=== PATIENT | female | born 2005 | race Caucasian/White ===

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

== ENCOUNTER 2025-01-08 05:02 | Inpatient (IN) | payer OTHER, MEDICAID, SELFPAY ==
--- OUTSIDE RECORDS SUMMARY | 2024-12-26 10:50 | XMS_ITS | Encounter Summary ---
Author Organization [facility] Address [address] [place] [address] Care Team Providers Care Secondary English Teacher Name Role Phone Unavailable Primary Care Provider Unavailabl e Reason for Visit * Reason Comments Routine Visit Encounter Details Date Type Department Care Team ([facility] st Contact Info) Description 12/26/2024 10:50 AM EDT Routine [facility] [address] [place] [id number] Davis Parks, DO [address] [facility] [address] Selina Mccarty, [facility]11 Third trimester ([facility]); 38 weeks gestation of ([facility]) Social History Tobacco Use Types Packs/Day Years [...] Sign Reading Time Taken Comments Blood Pressure 128/78 12/26/2024 10:46 AM EDT Pulse - - Temperature - - Respiratory Rate - - Oxygen Saturation - - Inhaled Oxygen Concentration - - Weight 76.7 kg (169 lb) 12/26/2024 10:46 AM EDT Height - - Body Mass Index - - documented in this encounter Progress Notes * Ani Deleon, HELPER MARBLE FINISHER - 12/26/2024 10:50 AM EDT Reason for Appointment: Patient ID: Holly [...] Constitutional: Appearance: Normal appearance. She is well-developed. Genitourinary: Vulva normal. Cardiovascular: Rate and Rhythm: Normal rate and [...] nursing note reviewed. Exam conducted with a body shop supervisor present. Vitals: Estimated body mass index is 21.16 kg/m?? as calculated from the following: Height as of 08/24/22: 5' 6 . Weight as of 08/24/22: 131 lb 1.9 oz. BP: 128/78 Patient's last menstrual period was 03/31/2024. ASSESSMENT & PLAN ICD-10-CM 1. Third trimester ([facility]) Z34.93 POCT urinalysis dipstick manually resulted 2. 38 weeks gestation of ([facility]) Z3A.38 Return OB: Patient presents today for a routine obstetrics appointment. Patient is currently 38w4d . Patient states she is doing well but has complaints of being tired due to current . Patient has verbalizes frequent movement. labor precautions was discussed/given and patient was instructed to perform kick counts three times a day. Pt to be induced on 01/03/25 with pitocin. Induction consents signed. Pt to report to [facility] at 0500 on 01/03/25. Orders Placed This Encounter Procedures POCT urinalysis dipstick manually resulted Follow Up: Patient is to return to office in 1 week for routine OB appointment. Documented by Ani Deleon LPN on behalf of: Davis Parks DO documented in this encounter Plan of Treatment Not on file documented as of this encounter Procedures Procedure Name Priority Date/Time Associated Diagnosis Comments POCT URINALYSIS DIPSTICK Routine 12/26/2024 10:53 AM EDT Third trimester ([facility]) documented in this encounter Results * (ABNORMAL) POCT urinalysis dipstick manually resulted (12/26/2024 10:53 AM EDT) Color, UA Yellow Clarity, UA Clear Glucose, UA Negative Negative - 2000(110) ++++ mg/dL Bilirubin, UA Negative Negative - 4(70) +++ mg/dL Ketones, UA Negative Negative - 160(16) ++++ mg/dL Spec Grav, UA 1.015 1 - 1.03 Blood, UA Negative Negative - 50 Brandt/mcL pH, UA 6.5 5 - 9 Protein, UA Negative Negative - 2000(20) ++++ mg/dL Urobilinogen, UA 0.2 0.2 - 12 mg/dL Leukocytes, UA Moderate Negative - 500+++ Scott/mcL Nitrite, UA Negative Negative - Positive Urine 12/26/2024 10:5 3 AM EDT Davis Parks DO POINT OF CARE TEST ENTER/EDIT OR DERABLES Final Result documented in this encounter Visit Diagnoses Diagnosis Third trimester ([facility]) state, incidental 38 weeks gestation of ([facility]) documented in this encounter
--- OUTSIDE RECORDS SUMMARY | 2025-01-03 08:50 | XMS_ITS | Encounter Summary ---
Author Organization [facility] Healthcare Address [address] [place] [address] Care Team Providers Care Logistics Solution Manager Name Role Phone Unavailable Primary Care Provider Unavailabl e Reason for Visit * Reason Comments Routine Visit Encounter Details Date Type Department Care Team ([facility] st Contact Info) Description 01/03/2025 8:50 AM EDT Routine [facility] [address] [place] [id number] Emily Carrera PA [address] [place] [address] 39 weeks gestation of ([facility]); Third trimester ([facility]); Low serum iron Social History Tobacco Use Types Packs/Day Years [...] Sign Reading Time Taken Comments Blood Pressure 130/70 01/03/2025 8:56 AM EDT Pulse - - Temperature - - Respiratory Rate - - Oxygen Saturation - - Inhaled Oxygen Concentration - - Weight 78.5 kg (173 lb 1.9 oz) 01/03/2025 8:56 A M EDT Height - - Body Mass Index - - documented in this encounter Progress Notes * PRERNA Glass - 01/03/2025 8:50 AM EDT Reason for Appointment: Patient ID: Holly Vance is a 19 y.o. female who presents for Routine Visit Patient presents today for Return OB appointment. MEDICATIONS Current Outpatient Medications Medication Instructions ondansetron ODT (ZOFRAN-ODT) 4 mg ALLERGIES Allergies [...] Exam Constitutional: Appearance: Normal appearance. She is well-developed and normal weight. HENT: Head: Normocephalic. Cardiovascular: Rate and Rhythm: Normal rate and regular rhythm. Pulses: Normal pulses. Pulmonary: Effort: Pulmonary effort is normal. Breath sounds: Normal breath sounds. Abdominal: General: Bowel sounds are normal. There is no distension. Palpations: Abdomen is soft. Tenderness: There is no abdominal tenderness. There is no guarding or rebound. Musculoskeletal: General: No swelling. Normal range of motion. Right lower leg: No edema. Left lower leg: No edema. Neurological: General: No focal deficit present. Mental Status: She is alert and oriented to person, place, and time. Skin: General: Skin is warm and dry. Psychiatric: Mood and Affect: Mood normal. Behavior: Behavior normal. Thought Content: Thought content normal. Judgment: Judgment normal. Vitals and nursing note reviewed. Exam conducted with a portfolio mgr present. Vitals: Estimated body mass index is 21.16 kg/m?? as calculated from the following: Height as of 08/24/22: 5' 6 . Weight as of 08/24/22: 131 lb 1.9 oz. BP: 130/70 Patient's last menstrual period was 03/31/2024. ASSESSMENT & PLAN ICD-10-CM 1. 39 weeks gestation of ([facility]) Z3A.39 POCT urinalysis dipstick manually resulted 2. Third trimester ([facility]) Z34.93 POCT urinalysis dipstick manually resulted 3. Low serum iron E61.1 POCT urinalysis dipstick manually resulted Return OB: Patient presents today for a routine obstetrics appointment. Patient is currently 39w5d . Patient states she is doing well [...] week for routine OB appointment. Documented by Faustina Colón LPN on behalf of: PRERNA Glass documented in this encounter Plan of Treatment Not on file documented as of this encounter Procedures Procedure Name Priority Date/Time Associated Diagnosis Comments POCT URINALYSIS DIPSTICK Routine 01/03/2025 9:03 AM EDT 39 weeks gestation of ([facility]) Third trimester ([facility]) Low serum iron documented in this encounter Results * (ABNORMAL) POCT urinalysis dipstick manually resulted (01/03/2025 9:03 AM EDT) Color, UA Yellow Clarity, UA Clear Glucose, UA Negative Negative - 1999(110) ++++ mg/dL Bilirubin, UA Negative Negative - 4(70) +++ mg/dL Ketones, UA Negative Negative - 160(16) ++++ mg/dL Spec Grav, UA 1.020 1 - 1.03 Blood, UA Negative Negative - 50 Brandt/mcL pH, UA 6.0 5 - 9 Protein, UA Positive Negative - 2000(20) ++++ mg/dL Comment:30 Urobilinogen, UA 1.0 0.2 - 12 mg/dL Leukocytes, UA Negative Negative - 500+++ Scott/mcL Nitrite, UA Negative Negative - Positive Urine 01/03/2025 9:03 AM EDT Emily GRAFF POINT OF CARE TEST ENTER/EDIT OR DERABLES Final Result documented in this encounter Visit Diagnoses Diagnosis 39 weeks gestation of ([facility]) Third trimester ([facility]) state, incidental Low serum iron documented in this encounter
[2025-01-08] VITALS (39 sets, daily range): BP systolic 99–191; BP diastolic 50–151; PULSE 67–146; TEMP 36.3–37.1
--- OUTSIDE RECORDS SUMMARY | 2025-01-08 05:09 | XMS_ITS | Encounter Summary ---
Author Organization [facility] Address [address] [place] [address] Care Team Providers Care Fuel Storage Technician Name Role Phone Unavailable Primary Care Provider Unavailabl e Encounter Details Date Type Department Care Team (Late st Contact Info) Description 07/19/2024 Abstract [facility] [address] [facility] [place] [address] Davis Parks, DO [address] [place] [address] Social History Tobacco Use Types Packs/Day Years [...]
--- OUTSIDE RECORDS SUMMARY | 2025-01-08 05:09 | XMS_ITS | Encounter Summary ---
Author Organization [facility] Address [address] [place] [address] Care Team Providers Care Sod Farmer Name Role Phone Unavailable Primary Care Provider Unavailabl e Encounter Details Date Type Department Care Team (Late st Contact Info) Description 09/05/2024 External Result Encounter [facility] OB [address] [facility] [place] [address] Davis Parks, DO [address] [place], [facility] Social History Tobacco Use Types Packs/Day [...] PM EDT THIS EXAM WAS PERFORMED AT [facility] NAME: ETELVINA BETHEA : 2005 SEX: F Accession Number: [id number] ORDERING PHYSICIAN: DAVIS PARKS REFERRING PHYSICIAN: DAVIS PARKS Coding ----- --------- Procedures [id number]: Ultrasound, uterus, real time with image documentation, and maternal evaluation plus detailed anatomic examination, transabdominal approach;single or first gestation [id number]: Echocardiography, , cardiovascular system, real time with [...] 1 lb 1 oz EFW by Hadlock ([id number]) Head / Face / Neck Biometry: Cephalic index 0.73 5% Nicolaides Chief Transfer And Pumphouse Operator 5.4 mm CM 3.6 mm 4% Nicolaides [...] Heart / Thorax RVOT view. 3-vessel view. 3-xhbnbo-xklrtpa view. Echocardiogram ----- --------- Situs situs solitus (normal) Cardiac position suboptimal Cardiac axis normal Cardiac size normal (approx. 1/3 of thoracic area) Cardiac rhythm regular (normal) 4-chamber view suboptimal LVOT view normal RVOT view not examined 3-vessel view not examined 8-jkrjga-omrowhg view not examined Aortic arch view normal [...] of 01/05/2025. Recommendations ----- --------- Please see [facility] documentation from today. The patient is scheduled in four to six week(s) to complete anatomic survey and echocardiogram. Subsequent follow up or other follow up as clinically determined by primary OB provider unless otherwise specified by M. Results forwarded to ordering provider so they can follow up with the patient as necessary. Procedure Note Radiology, Kevin, - 09/05/2024 THIS EXAM WAS PERFORMED AT [facility] NAME: ETELVINA BETHEA : 2005 SEX: F Accession Number: [id number] ORDERING PHYSICIAN: DAVIS PARKS REFERRING PHYSICIAN: DAVIS PARKS Coding ----- --------- Procedures [id number]: Ultrasound, uterus, real time with imagedocumentation, and maternal evaluation plus detailed anatomic examination, transabdominalapproach;single or first gestation [id number]: Echocardiography, , cardiovascular system, real timewith image [...] 1 lb 1 oz EFW by Hadlock ([id number]) Head / Face / Neck Biometry: Cephalic index 0.73 5% Nicolaides Chief Transfer And Pumphouse Operator 5.4 mm CM 3.6 mm 4% Nicolaides [...] Heart / Thorax RVOT view. 3-vessel view. 2-bctjle-kzjuikn view. Echocardiogram ----- --------- Situs situs solitus (normal) Cardiac position suboptimal Cardiac axis normal Cardiac size normal (approx. 1/3 of thoracic area) Cardiac rhythm regular (normal) 4-chamber view suboptimal LVOT view normal RVOT view not examined 3-vessel view not examined 0-kictjj-lsgstcj view not examined Aortic arch view normal [...] NIESHA of01/05/2025. Recommendations ----- --------- Please see M documentation from today. The patient is scheduled in four to six week(s) to complete anatomicsurvey and echocardiogram. Subsequent follow up or other follow up as clinically determined byprimary OB provider unless otherwise specified by M. Results forwarded to ordering provider so they can follow up with thepatient as necessary. us Davis Parks DO IMG OB US PROCEDURES Final Resul t documented in this encounter Visit Diagnoses Not on filedocumented in this encounter
--- OUTSIDE RECORDS SUMMARY | 2025-01-08 05:09 | XMS_ITS | Encounter Summary ---
Author Organization [facility] tem Address [id number] [address] [place] [address] Care Team Providers Care Property Officer Name Role Phone Rudolph Ortiz MD Primary Care Provider [phone] Encounter Details Date Type Department Care Team (Late st Contact Info) Description 08/21/2024 Abstract Maternal- Medicine at [facility] [address] [place] [phone] Seth Horton MD [address] [facility] [address] [place] [address] Social History Tobacco Use Types Packs/Day Years [...] on filedocumented in this encounter Care Teams Property Officer Relationship Specialty Start Date End Date Rudolph Ortiz MD [address] [place] [id number] PCP - General 12/06/12 documented as of this encounter
--- OUTSIDE RECORDS SUMMARY | 2025-01-08 05:09 | XMS_ITS | Encounter Summary ---
Author Organization [facility] Address [address] [place] [address] Care Team Providers Care Mobile Mechanic Name Role Phone Unavailable Primary Care Provider Unavailabl e Encounter Details Date Type Department Care Team (Late st Contact Info) Description 08/27/2024 Abstract [facility] OB [address] [facility] [place] [address] Davis Parks, DO [address] [facility] [place] [address] Social History Tobacco Use Types Packs/Day Years [...]
--- OUTSIDE RECORDS SUMMARY | 2025-01-08 05:09 | XMS_ITS | Encounter Summary ---
Author Organization [facility] tem Address [id number] [address] [place] [address] Care Team Providers Care Farm Service Adviser Name Role Phone Rudolph Ortiz MD Primary Care Provider [phone] Encounter Details Date Type Department Care Team (Late st Contact Info) Description 08/21/2024 Orders Only Maternal- Medicine at [facility] [address] [place] [phone] Ref Prov, [place] [address] Social History Tobacco Use Types Packs/Day Years [...] ORDERABLES Almaz l Result Performing Organization Address City/[facility]/ZIP Co de Phone Number MANUALLY TRANSCRIBED RESULTS * Unlisted Genetic Test (06/17/2024 4:12 PM EST) us Not In System Ref Prov LAB BLOOD ORDERABLES Almaz l Result Performing Organization Address City/[facility] Co de Phone Number MANUALLY TRANSCRIBED RESULTS documented in this encounter Visit Diagnoses Not on filedocumented in this encounter Care Teams Farm Service Adviser Relationship Specialty Start Date End Date Rudolph Ortiz MD [address] [place], [place] [id number] PCP - General 12/06/12 documented as of this encounter
--- OUTSIDE RECORDS SUMMARY | 2025-01-08 05:09 | XMS_ITS | Encounter Summary ---
Author Organization [facility] Address [address] [place] [address] Care Team Providers Care Assembler Lay Ups Name Role Phone Unavailable Primary Care Provider Unavailabl e Encounter Details Date Type Department Care Team (Late st Contact Info) Description 09/07/2024 Abstract [facility] OB [address] [facility] [place] [address] Davis Parks, DO [address] [place] [address] Social History Tobacco Use Types Packs/Day Years [...]
--- OUTSIDE RECORDS SUMMARY | 2025-01-08 05:10 | XMS_ITS | Encounter Summary ---
Author Organization [facility] Address [address] [place] [address] Care Team Providers Care Lens Grinder And Polisher Name Role Phone Unavailable Primary Care Provider Unavailabl e Encounter Details Date Type Department Care Team (Late st Contact Info) Description 06/13/2024 Abstract [facility] OB [address] [facility] [place] [address] Davis Parks, DO [address] [facility] [address] [place] [address] Social History Tobacco Use Types Packs/Day Years [...]
--- OUTSIDE RECORDS SUMMARY | 2025-01-08 05:10 | XMS_ITS | CCD ---
Author Organization [facility] Care Team Providers Care Nutrition Teacher Name Role Phone Mary Queen DO Primary Care Provider [phone] ANETA SANDERSON Admitting Unavailable NADDAF, ANETA A Attending Unavailable MARY QUEEN Primary Care Unavailable OZZY, MARY Primary Care Unavailable CLIFF ORTIZ Referring Unavailable OZZY, MARY Primary Care Unavailable NADDAF, ANETA A Referring Unavailable KASEY ., DR FLORES Admitting Unavailable KASEY ., DR FLORES Attending Unavailable MISC, DR SINGH Primary Care Unavailable KASEY ., DR FLORES Consulting Unavailable [employer] Consulting Unavailable Unavailable Primary Care Provider Unavailmarlon Ortiz MD, Rudolph Bran Primary Care Provider KASEY, DAVIS R Referring Unavailable TANIYA, CAODAISM A Primary Care Unavailable KAVEH, HARMAN Attending Unavailable KASEY, DAVIS R Referring Unavailable TANIYA, CAODAISM A Primary Care Unavailable KASEY, DAVIS R Referring Unavailable TANIYA, CAODAISM A Primary Care Unavailable DEBI, EMILY Attending Unavailable KASEY, DAVIS Attending Unavailable DEBI, EMILY Attending Unavailable KAVEH, HARMAN Referring Unavailable KASEY, DAVIS Attending Unavailable DEBI, EMILY Attending Unavailable KASEY, DAVIS Attending Unavailable DEBI, EMILY Referring Unavailable DEBI, EMILY Attending Unavailable KASEY, DAVIS Attending Unavailable DEBI, EMILY Attending Unavailable KASEY, DAVIS Attending Unavailable DEBI, EMILY Attending Unavailable KASEY, DAVIS Attending Unavailable Allergies Allergy Classification Reported Allergen(s) Allergy Type Date of Onset Reaction(s) Facility (20 sources) Amoxicillin Drug Allergy 1 Other (See Comments) [employer] (6 sources) Contrast media; Translations: [RED DYE] Propensity to adverse reactions to drug 3 [employer] Work Phone: (20 sources) Milk-Related Compounds Propensity to adverse reactions to drug 3 Other (See Comments) [facility] (1 source) Amoxicillin Drug Allergy [facility] (20 sources) House dust mite Allergy to substance 4 [facility] (20 sources) Red Dye #40 (Allura Red) Propensity to adverse reactions 3 [facility] (4 sources) Milk; Translations: [MILK CONTAINING PRODUCTS (DAIRY)] Propensity to adverse reactions to drug 5 [facility] (20 sources) Penicillins; Translations: [PENICILLINS] Propensity to adverse reactions to drug 5 GI Disturbance [facility] (4 sources) House Dust Mite; Translations: [HOUSE DUST MITE] Propensity to adverse reactions to drug 5 [facility] (20 sources) Pollen Allergy to substance 5 [facility] (20 sources) Other Propensity to adverse reactions 5 [facility] (20 sources) Red Dye #17 (New Red) Propensity to adverse reactions 5 [facility] Medications Current Medications Medication Drug Class(es) [...] sources) Dopamine-2 Receptor Antagonist Start: 06-29-2024 End: 01-03-2025 metoclopramide (Reglan) 10 MG tablet Indications: Nausea Take 1 tablet (10 mg) by mouth in the morning and 1 tablet (10 mg) at noon and 1 tablet (10 mg) in the evening. Take before meals. Take 1 tablet by mouth 30 minutes prior to meals 3 times daily as needed for nausea.. 90 tablet 2 06/29/2024 01/03/2025 Discontinued 2 ml midazolam 1 mg/ml injection (1 [...] cycle; Translations: [Missed period] Onset: 09-10-2022 Chronic Nutritional deficiencies (2 sources) Serum iron low; Translations: [Iron deficiency] 01-03-2025 Episodic Other complications of (1 source) Vomiting of [...] [36 weeks gestation of ] 12-13-2024 Episodic Residual codes; unclassified (2 sources) Gestation period, 38 weeks; Translations: [38 weeks gestation of ] 12-26-2024 Episodic Residual codes; unclassified (2 sources) Gestation period, 39 weeks; Translations: [39 weeks gestation of ] 01-03-2025 Episodic Unclassified (1 source) FOB Cardiac Defect Onset: 09-05-2024 Past or Other Problems Problem Classification Problem Date Documented Da te Episodic/Chronic Conditions associated with dizziness or vertigo (2 sources) Benign paroxysmal positional vertigo; Translations: [Benign paroxysmal vertigo, unspecified ear] Onset: 11-12-2016 11-12-2016 Episodic Unclassified (2 sources) Patient encounter status 07-11-2024 Results Test Name Value Interpretation Reference Range Facility Urinalysis macro (dipstick) panel (U)on 01-03-2025 Bilirubin, UA Negative Negative - 4(70) +++ mg/dL [facility] Blood, UA Negative Negative - 50 Brandt/mcL [facility] Clarity, UA Clear [facility] Color, UA Yellow [facility] Glucose, UA Negative Negative - 2000(110) ++++ mg/dL [facility] Interpretation and review of laboratory results Abnormal [facility] Ketones, UA Negative Negative - 160(16) ++++ mg/dL [facility] Leukocytes, UA Negative Negative - 500+++ Scott/mcL [facility] Nitrite, UA Negative Negative - Positive [facility] pH, UA 6 5 - 9 [facility] Protein, UA Positive Negative - 1999(20) ++++ mg/dL [facility] Comment on above: 30 Spec Grav, UA 1.02 1 - 1.03 [facility] Urobilinogen, UA 1.0 0.2 - 12 mg/dL [facility] Urinalysis macro (dipstick) panel (U)on 12-26-2024 Bilirubin, UA Negative Negative - 4(70) +++ mg/dL [facility] Blood, UA Negative Negative - 50 Brandt/mcL [facility] Clarity, UA Clear [facility] Color, UA Yellow [facility] Glucose, UA Negative Negative - 1999(110) ++++ mg/dL [facility] Interpretation and review of laboratory results Abnormal [facility] Ketones, UA Negative Negative - 160(16) ++++ mg/dL [facility] Leukocytes, UA Moderate Negative - 500+++ Scott/mcL [facility] Nitrite, UA Negative Negative - Positive [facility] pH, UA 6.5 5 - 9 [facility] Protein, UA Negative Negative - 1999(20) ++++ mg/dL [facility] Spec Grav, UA 1.015 1 - 1.03 [facility] Urobilinogen, UA 0.2 0.2 - 12 mg/dL [facility] Urinalysis macro (dipstick) panel (U)on 12-13-2024 Bilirubin, UA Negative Negative - 4(70) +++ mg/dL [facility] Blood, UA Negative Negative - 50 Brandt/mcL [facility] Clarity, UA Clear [facility] Color, UA Yellow [facility] Glucose, UA Negative Negative - 1999(110) ++++ mg/dL [facility] Interpretation and review of laboratory results Normal [facility] Ketones, UA Negative Negative - 160(16) ++++ mg/dL [facility] Leukocytes, UA Moderate Negative - 500+++ Scott/mcL [facility] Nitrite, UA Negative Negative - Positive [facility] pH, UA 7 5 - 9 [facility] Protein, UA Negative Negative - 1999(20) ++++ mg/dL [facility] Spec Grav, UA 1.015 1 - 1.03 [facility] Urobilinogen, UA 0.2 0.2 - 12 mg/dL [facility] Urinalysis macro (dipstick) panel (U)on 12-05-2024 Bilirubin, UA Negative Negative - 4(70) +++ mg/dL [facility] Blood, UA Negative Negative - 50 Brandt/mcL [facility] Clarity, UA Clear [facility] Color, UA Yellow [facility] Glucose, UA Negative Negative - 1999(110) ++++ mg/dL [facility] Interpretation and review of laboratory results Abnormal [facility] Ketones, UA Negative Negative - 160(16) ++++ mg/dL [facility] Leukocytes, UA Positive Negative - 500+++ Scott/mcL [facility] Comment on above: small Nitrite, UA Negative Negative - Positive [facility] pH, UA 7 5 - 9 [facility] Protein, UA Negative Negative - 1999(20) ++++ mg/dL [facility] Spec Grav, UA 1.02 1 - 1.03 [facility] Urobilinogen, UA 0.2 0.2 - 12 mg/dL [facility] US OB FOLLOW UP TRANSABDOMIN AL APPROACHon [...] II, MD, PHD at 29-Nov-2024 08:51:59 AM [facility] Normal Not Available Comment on above: Order Comment: US OB SCAN FOR GROWTH Estimated Date of Delivery: 01/05/25 Gestational Age as of 10/31/2024: 30w4d Urinalysis macro (dipstick) panel (U)on 11-28-2024 Bilirubin, UA Negative Negative - 4(70) +++ mg/dL [facility] Blood, UA Negative Negative - 50 Brandt/mcL [facility] Clarity, UA Clear [facility] Color, UA Yellow [facility] Glucose, UA Negative Negative - 1999(110) ++++ mg/dL [facility] Interpretation and review of laboratory results Abnormal [facility] Ketones, UA Negative Negative - 160(16) ++++ mg/dL [facility] Leukocytes, UA Positive Negative - 500+++ Scott/mcL [facility] Comment on above: small Nitrite, UA Negative Negative - Positive [facility] pH, UA 7 5 - 9 [facility] Healthcare Protein, UA Negative Negative - 1999(20) ++++ mg/dL [facility] Healthcare Spec Grav, UA 1.025 1 - 1.03 [facility] Urobilinogen, UA 0.2 0.2 - 12 mg/dL [facility] Urinalysis macro (dipstick) panel (U)on 11-14-2024 Bilirubin, UA Negative Negative - 4(70) +++ mg/dL [facility] Blood, UA Negative Negative - 50 Brandt/mcL [facility] Healthcare Clarity, UA Clear [facility] Color, UA Yellow [facility] Glucose, UA Negative Negative - 1999(110) ++++ mg/dL [facility] Interpretation and review of laboratory results Abnormal [facility] Ketones, UA Negative Negative - 160(16) ++++ mg/dL [facility] Leukocytes, UA Positive Negative - 500+++ Scott/mcL [facility] Comment on above: small Nitrite, UA Negative Negative - Positive [facility] pH, UA 7.5 5 - 9 [facility] Healthcare Protein, UA Trace Negative - 1999(20) ++++ mg/dL [facility] Healthcare Spec Grav, UA 1.02 1 - 1.03 [facility] Urobilinogen, UA 0.2 0.2 - 12 mg/dL [facility] Urinalysis macro (dipstick) panel (U)on 10-31-2024 Bilirubin, UA Negative Negative - 4(70) +++ mg/dL [facility] Blood, UA Negative Negative - 50 Brandt/mcL [facility] Clarity, UA Clear [facility] Color, UA Yellow [facility] Glucose, UA Negative Negative - 1999(110) ++++ mg/dL [facility] Interpretation and review of laboratory results Normal [facility] Ketones, UA Negative Negative - 160(16) ++++ mg/dL [facility] Leukocytes, UA Trace Negative - 500+++ Scott/mcL [facility] Nitrite, UA Negative Negative - Positive [facility] pH, UA 6 5 - 9 [facility] Protein, UA Negative Negative - 1999(20) ++++ mg/dL [facility] Spec Grav, UA 1.02 1 - 1.03 [facility] Urobilinogen, UA 0.2 0.2 - 12 mg/dL [facility] Urinalysis macro (dipstick) panel (U)on 10-17-2024 Bilirubin, UA Negative Negative - 4(70) +++ mg/dL [facility] Blood, UA Negative Negative - 50 Brandt/mcL [facility] Clarity, UA Clear [facility] Color, UA Yellow [facility] Glucose, UA Negative Negative - 1999(110) ++++ mg/dL [facility] Interpretation and review of laboratory results Abnormal [facility] Ketones, UA Negative Negative - 160(16) ++++ mg/dL [facility] Leukocytes, UA Trace Negative - 500+++ Scott/mcL [facility] Nitrite, UA Negative Negative - Positive [facility] pH, UA 7.5 5 - 9 [facility] Protein, UA Negative Negative - 1999(20) ++++ mg/dL [facility] Spec Grav, UA 1.02 1 - 1.03 [facility] Urobilinogen, UA 0.2 0.2 - 12 mg/dL [facility] Urinalysis macro (dipstick) panel (U)on 09-27-2024 Bilirubin, UA Negative Negative - 4(70) +++ mg/dL [facility] Blood, UA Negative Negative - 50 Brandt/mcL [facility] Clarity, UA Clear [facility] Color, UA Yellow [facility] Glucose, UA Negative Negative - 1999(110) ++++ mg/dL [facility] Interpretation and review of laboratory results Normal [facility] Ketones, UA Negative Negative - 160(16) ++++ mg/dL [facility] Leukocytes, UA Negative Negative - 500+++ Scott/mcL [facility] Nitrite, UA Negative Negative - Positive [facility] pH, UA 7.5 5 - 9 [facility] Protein, UA Negative Negative - 1999(20) ++++ mg/dL [facility] Spec Grav, UA 1.02 1 - 1.03 [facility] Urobilinogen, UA 0.2 0.2 - 12 mg/dL [facility] ALL CBC WITH AUTO DIFFon BASOPHILS ABSOLUTE AUTO 0 [facility] Basophils/100 WBC (Bld) 0.3 % 0.2 - 2.0 % [facility] Eosinophils/100 WBC (Bld) 1.6 % 0.9 - 7.0 % [facility] Erythrocyte distribution width (RBC) [Ratio] 13.2 % 11.0 - 15.0 % [facility] Hematocrit (Bld) [Volume fraction] 27.5 % Low 36.0 - 48.0 % [facility] Hemoglobin (Bld) [Mass/Vol] 8.9 g/dL Low 12.0 - 16.0 g/dL [facility] IMMATURE GRANULOCYTES ABS AUTO 0.05 High [facility] Immature granulocytes/100 WBC (Bld) 0.7 % High 0.0 - 0.5 % [facility] Interpretation and review of laboratory results Abnormal [facility] LYMPHOCYTES ABSOLUTE AUTO 1.2 [facility] Lymphocytes/100 WBC (Bld) 16.4 % Low 20.5 - 60.0 % [facility] MCH (RBC) [Entitic mass] 28.9 pg 26.7 - 34.0 pg [facility] MCHC (RBC) [Mass/Vol] 32.4 g/dL 29.9 - 35.2 g/dL [facility] MCV (RBC) [Entitic vol] 89.3 fL 81.0 - 99.0 fL [facility] MONOCYTES ABSOLUTE AUTO 0.7 [facility] Monocytes/100 WBC (Bld) 9.2 % 1.7 - 12.0 % [facility] NEUTROPHILS ABSOLUTE AUTO 5.2 [facility] Neutrophils/100 WBC (Bld) 71.8 % 43.0 - 75.0 % [facility] Platelet mean volume (Bld) [Entitic vol] 9.1 fL Low 9.5 - 13.5 fL [facility] EO # 0.1 [facility] PLT 244 [facility] RBC 3.08 Low [facility] WBC 7.3 [facility] US OB 14+ WEEKS ANATOMY SCAN on [...] II, MD, PHD at 31-Aug-2024 08:22:08 AM [facility] Normal Not Available Comment on above: Order Comment: US OB ANATOMY SINGLE W US OB CERVICAL LENGTH Estimated Date of Delivery: 01/05/25 Gestational Age as of 08/01/2024: 17w4d Urinalysis macro (dipstick) panel (U)on 08-30-2024 Bilirubin, UA Negative Negative - 4(70) +++ mg/dL [facility] Blood, UA Negative Negative - 50 Brandt/mcL [facility] Clarity, UA Clear [facility] Color, UA Yellow [facility] Glucose, UA Negative Negative - 2000(110) ++++ mg/dL [facility] Interpretation and review of laboratory results Normal [facility] Ketones, UA Negative Negative - 160(16) ++++ mg/dL [facility] Leukocytes, UA Negative Negative - 500+++ Scott/mcL [facility] Nitrite, UA Negative Negative - Positive [facility] pH, UA 6 5 - 9 [facility] Protein, UA Negative Negative - 2000(20) ++++ mg/dL [facility] Spec Grav, UA 1.02 1 - 1.03 [facility] Urobilinogen, UA 0.2 0.2 - 12 mg/dL [facility] RECURRENT VAGINITIS (HTRX)on 08-02-2024 ATOPOBIUM VAGINAE 19.828 Abnormal [facility] ATOPOBIUM VAGINAE Detected Abnormal [facility] BVAB 2,3 (BACTERIAL VAGINOSIS ASSOCIATED BACTERIA 2, 3); MOBILUNCUS SPP 24.709 Abnormal [facility] BVAB 2,3 (BACTERIAL VAGINOSIS ASSOCIATED BACTERIA 2, 3); MOBILUNCUS SPP Detected Abnormal [facility] LIA ALBICANS, PARAPSILOSIS, TROPICALIS 0 [facility] LIA ALBICANS, PARAPSILOSIS, TROPICALIS Not detected [facility] LIA GLABRATA 0 [facility] LIA GLABRATA Not detected [facility] LIA KRUSEI 0 [facility] LIA KRUSEI Not detected [facility] CHLAMYDIA TRACHOMATIS 0 [facility] CHLAMYDIA TRACHOMATIS Not detected [facility] GARDNERELLA VAGINALIS 26.067 Abnormal [facility] GARDNERELLA VAGINALIS Detected Abnormal [facility] Interpretation and review of laboratory results Abnormal [facility] MEGASPHAERA (TYPES 1, 2) 0 [facility] MEGASPHAERA (TYPES 1, 2) Not detected [facility] MYCOPLASMA GENITALIUM 0 [facility] MYCOPLASMA GENITALIUM Not detected [facility] NEISSERIA GONORRHOEAE 0 [facility] NEISSERIA GONORRHOEAE Not detected [facility] TRICHOMONAS VAGINALIS 0 [facility] TRICHOMONAS VAGINALIS Not detected [facility] Urinalysis macro (dipstick) panel (U)on 08-01-2024 Bilirubin, UA Negative Negative - 4(70) +++ mg/dL [facility] Blood, UA Negative Negative - 50 Brandt/mcL [facility] Clarity, UA Clear [facility] Color, UA Yellow [facility] Glucose, UA Negative Negative - 1999(110) ++++ mg/dL [facility] Interpretation and review of laboratory results Normal [facility] Ketones, UA Negative Negative - 160(16) ++++ mg/dL [facility] Leukocytes, UA Negative Negative - 500+++ Scott/mcL [facility] Nitrite, UA Negative Negative - Positive [facility] pH, UA 6 5 - 9 [facility] Protein, UA Negative Negative - 1999(20) ++++ mg/dL [facility] Spec Grav, UA 1.025 1 - 1.03 [facility] Urobilinogen, UA 0.2 0.2 - 12 mg/dL [facility] Urinalysis macro (dipstick) panel (U)on 07-04-2024 Bilirubin, UA Negative Negative - 4(70) +++ mg/dL [facility] Blood, UA Negative Negative - 50 Brandt/mcL [facility] Clarity, UA Clear [facility] Color, UA Mary [facility] Glucose, UA Negative Negative - 1999(110) ++++ mg/dL [facility] Interpretation and review of laboratory results Abnormal [facility] Ketones, UA Negative Negative - 160(16) ++++ mg/dL [facility] Leukocytes, UA Trace Negative - 500+++ Scott/mcL [facility] Nitrite, UA Negative Negative - Positive [facility] pH, UA 1 5 - 9 [facility] Protein, UA Negative Negative - 1999(20) ++++ mg/dL [facility] Spec Grav, UA 1.025 1 - 1.03 [facility] Urobilinogen, UA 0.2 0.2 - 12 mg/dL [facility] MLR HEMOGLOBIN A1Con 12-18-2 024 Glucose [Mass/Vol] 105 mg/dL [facility] HbA1c (Bld) [Mass fraction] 5.3 % 4.5 - 6.2 % [facility] Comment on above: ADA RECOMMENDED LIMI T 4.0 - 6.0 ADA THERAPEUTIC TARGET < 7.0 ACTION SUGGESTED [facility] Ql (U)o n 06-08-2024 Interpretation and review of laboratory results Abnormal [facility] Preg Test, Ur Positive Negative [facility] Urinalysis macro (dipstick) panel (U)on 06-08-2024 Bilirubin, UA Negative Negative - 4(70) +++ mg/dL [facility] Blood, UA Negative Negative - 50 Brandt/mcL [facility] Clarity, UA Clear [facility] Color, UA Yellow [facility] Glucose, UA Negative Negative - 2000(110) ++++ mg/dL [facility] Interpretation and review of laboratory results Abnormal [facility] Ketones, UA Positive Negative - 160(16) ++++ mg/dL [facility] Comment on above: trace Leukocytes, UA Negative Negative - 500+++ Scott/mcL [facility] Nitrite, UA Negative Negative - Positive [facility] pH, UA 5.5 5 - 9 [facility] Protein, UA Trace Negative - 2000(20) ++++ mg/dL [facility] Spec Grav, UA 1.025 1 - 1.03 [facility] Urobilinogen, UA 1.0 0.2 - 12 mg/dL [facility] PREG QUANT HCGon 024 HCG QUANTITATIVE 82308 mIU/mL [facility] Comment on above: 5-50 0.2-1 WEEK 50-500 1-2 WEEKS 100-5,000 2-3 WEEKS 500-10,000 3-4 WEEKS 1,000-50,000 4-5 WEEKS 10,000-100,000 5-6 WEEKS 15,000-200,000 6-8 WEEKS 10,000-100,000 2-3 MONTHS [facility] PREG QUANT HCGon 024 HCG QUANTITATIVE 89832 mIU/mL [facility] Comment on above: 5-50 0.2-1 WEEK 50-500 1-2 WEEKS 100-5,000 2-3 WEEKS 500-10,000 3-4 WEEKS 1,000-50,000 4-5 WEEKS 10,000-100,000 5-6 WEEKS 15,000-200,000 6-8 WEEKS 10,000-100,000 2-3 MONTHS [facility] PREG QUANT HCGon 024 HCG QUANTITATIVE 717 mIU/mL [facility] Comment on above: 5-50 0.2-1 WEEK 50-500 1-2 WEEKS 100-5,000 2-3 WEEKS 500-10,000 3-4 WEEKS 1,000-50,000 4-5 WEEKS 10,000-100,000 5-6 WEEKS 15,000-200,000 6-8 WEEKS 10,000-100,000 2-3 MONTHS [facility] PREG QUANT HCGon 024 HCG QUANTITATIVE 322 mIU/mL [facility] Comment on above: 5-50 0.2-1 WEEK 50-500 1-2 WEEKS 100-5,000 2-3 WEEKS 500-10,000 3-4 WEEKS 1,000-50,000 4-5 WEEKS 10,000-100,000 5-6 WEEKS 15,000-200,000 6-8 WEEKS 10,000-100,000 2-3 MONTHS [facility] FACTOR V LEIDEN MUTATION LOUIE LYSIS 09-22-2022 Factor V Leiden Comment Normal [facility] Comment on above: Result Comment: Resu lt: c.1601G>A ([id number]) - Not Detected . This result is not associated with an increased risk for venous thromboembolism. See Additional Clinical Information and Comments. Additional Clinical Information: Venous thromboembolism is a multifactorial disease influenced by genetic, environmental, and circumstantial risk factors. The c.1601G>A (p. [id number]) variant in the F5 gene, commonly referred [...] c.*97G>A variant and Factor V Leiden (PMID: [id number]). Additional risk factors include but are not [...] health care providers to discuss results at [phone] ([phone]). . Test Details: Variant Analyzed: c.1601G>A (p. [id number]), referred to as Factor V Leiden . [...] developed and its performance characteristics determined by [employer]. It has not been cleared or approved by the Food and Drug Administration. . References: Kulwinder S, Toya AK, Christopher R, Jenny WW, Ino JH; [facility] Professional Practice and Guidelines Committee. Addendum: [employer] consensus statement on factor V Leiden mutation testing. Tressa Med. 2020Aug 29. doi: 10.1038/u87344-751-30902-t. PMID: 86322012. . Susanna ERNST. Factor V Leiden Thrombophilia. 1998November 07 (Updated 2017Jun 30). In: Lee MP, Stephon HH, Toan RA, et al., editors. Terry(R) (Internet). [place] ([place]): [facility]; 6158-7671. Available from: https://www.ncbi.nlm.nih.gov/books/MUA8650/ . Dylan S, Toya AK, Estuardo X, Ernst B, Lonny EB, Brielle P, Cynthia CS; [facility] Laboratory Nursing Attendant Committee. Venous thromboembolism laboratory testing (factor V Leiden and factor II c.*97G>A), 2018 update: a technical standard of the [employer] (ACMG). Tressa Med. 2018 May;20(12):5358-7279. doi: 10.1038/[id number]-s. Epub 2017Mar 31. PMID: 77387863. . Kat Ceron, PhD, FACMG Sherry Tarango, PhD Clinton Carballo, PhD, FAC Alexandr Shen, PhD, FAC Eladio Wang, PhD, [facility] W eBrta Hodgson, PhD, [facility] Jacqueline Chavira, PhD, [facility] Louise De La Rosa, PhD, [facility] Performed By: #### F VPCR #### [facility] [address] [place] [address] Dr. Rodrigo Simental RY VIPER LUPUS REFLEXon 09-20-2022 aPTT Coag (Bld) [Time] 40.2 s Normal 0.0-43.5 [facility] Comment on above: Performed By: #### L UPUSRF #### [facility] [address] [address] [address] Rodrigo Simental dRVVT 39.7 sec Normal 0.0-47.0 [facility] Comment on above: Performed By: #### L UPUSRF #### [facility] [address] [address] [address] Rodrigo Simental Interpretation Comment: Normal [facility] Comment on above: Result Comment: No l upus anticoagulant was detected. Performed By: #### L UPUSRF #### [facility] [address] [address] [address] Rodrigo Simental B2-GLYCOPROTEIN 1 AB IGA/IGG /IGMon 09-15-2022 Beta-2 Glycoprotein I Ab, IgG <9 Normal 0-20 [facility] Comment on above: Result Comment: The reference interval reflects a 3SD or 99th percentile interval, which is thought to represent a potentially clinically significant result in accordance with the International Consensus Statement on the classification criteria for definitive antiphospholipid syndrome (APS). J Thromb Haem 2006;4:295-306. Performed By: #### B GLYCOA #### [facility] [address] [address] [address] Rodrigo Simental Beta-2 Glycoprotein I Ab, IgM <9 Normal 0-32 [facility] Comment on above: Result Comment: The reference interval reflects a 3SD or 99th percentile interval, which is thought to represent a potentially clinically significant result in accordance with the International Consensus Statement on the classification criteria for definitive antiphospholipid syndrome (APS). J Thromb Haem 2006;4:295-306. Performed By: #### B GLYCOA #### [facility] [address] [place] [address] Dr. Rodrigo Simental Beta-2 IgA <9 Normal 0-25 [facility] Comment on above: Result Comment: The reference interval reflects a 3SD or 99th percentile interval, which is thought to represent a potentially clinically significant result in accordance with the International Consensus Statement on the classification criteria for definitive antiphospholipid syndrome (APS). J Thromb Haem 2006;4:295-306. Performed By: #### B GLYCOA #### [facility] [address] [place] [address] Dr. Rodrigo Simental ANTICARDIOLIPIN AB (ZUHAIR) IGA /IGG/IGMon 09-13-2022 Anticardiolipin Ab,IgA,Qn <9 Normal 0-11 [facility] Comment on above: Result Comment: Nega tive: <12 Indeterminate: 12 - 20 Low-Med Positive: >20 - 80 High Positive: >80 Performed By: #### A CAQUAN #### [facility] [address] [address] [address] Rodrigo Simental Anticardiolipin Ab,IgG,Qn <9 Normal 0-14 [facility] Comment on above: Result Comment: Nega tive: <15 Indeterminate: 15 - 20 Low-Med Positive: >20 - 80 High Positive: >80 Performed By: #### A CAQUAN #### [facility] [address] [address] [address] Rodrigo Simental Anticardiolipin Ab,IgM,Qn 13 MPL U/mL Critically high 0-12 [facility] Comment on above: Result Comment: Nega tive: <13 Indeterminate: 13 - 20 Low-Med Positive: >20 - 80 High Positive: >80 Performed By: #### A CAQUAN #### [facility] [address] [address] [address] Rodrigo Simental ANTITHROMBIN ACTIVITYon 08-26 0 Antithrombin Activity 115 % Normal 75-135 [facility] Comment on above: Result Comment: Dire ct Xa inhibitor anticoagulants such as rivaroxaban, apixaban and edoxaban will lead to spuriously elevated antithrombin activity levels possibly masking a deficiency. Performed By: #### A NTIACT #### [facility] [address] [place] [address] Dr. Rodrigo Simental PROTEIN C FUNC ACTIVITYon Protein C-Functional 95 % Normal 68-150 [facility] Comment on above: Result Comment: Age [...] 89 Performed By: #### P RCFACT #### [facility] [address] [place] [address] Dr. Rodrigo Simental PROTEIN S ANTIGENon 09-14-19 23 Protein S, Free 88 % Normal 61-136 [facility] Comment on above: Performed By: #### P RTSAG #### [facility] [address] [place] [address] Dr. Rodrigo Simental Protein S, Total 74 % Normal 60-150 [facility] Comment on above: Result Comment: This test was developed and its performance characteristics determined by [facility]. It has not been cleared or approved by the Food and Drug Administration. Performed By: #### P RTSAG #### [facility] [address] [place] [address] Dr. Rodrigo Simental PROTEIN S, FREEon 09-13-2022 Protein S, Free 83 % Normal 61-136 [facility] Comment on above: Performed By: #### P ROTSFR #### [facility] [address] [address] [address] Rodrigo Simental US PELVISon 09-10-2022 US [...] EMETERIO FERREIRA Date: 2022-09-10 16:19 Normal [facility] MRI ENTEROGRAPHYon MRI ENTEROGRAPHY EXAMINATION: MRI OF [...] Lee Fernandes MD 07/02/21 Final result Normal [facility] POCT urine pregnancyon 06-10 Beta HCG ( test) Ql (U) Negative NEGATIVE [facility] Comment on above: Specimens with hCG l evels near the threshold of the test (25 mIU/mL) may give a negative or indeterminate result. In such cases, another test should be performed with a new specimen in 48-72 hours. If early is suspected clinically in this setting, correlation with quantitative serum b-hCG level is suggested. [facility] Surgical Pathologyon 021 Surgical Pathology [...] IDENTIFIED. Santiago Love M.D. Electronically Signed Out [facility]/06/11/2021 Clinical Information Pre-op Diagnosis: ABDOMINAL PAIN, [...] 9: RECTAL BX Gross Description 1. HOLLY ZILLES, DUODENAL BX Six rutledge-white tissue fragments from [...] 5. 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 SURGICAL PATHOLOGY CONSULTATION Patient Name: HOLLY MAIN [facility] Rec: [id number] Path Number: [id number] [facility] ANATOMIC PATHOLOGY [address] [place] [phone] Normal [facility] Comment on above: Performed By: #### P PPVS #### [address] [address] [employer]: Mehdi Love MD COVID-19on 06-06-2021 SARS-CoV-2 (COVID-19) RNA CHRISTY+probe Ql (Unsp spec) [facility] SARS-CoV-2 (COVID-19) RNA CHRISTY+probe Ql (Unsp spec) Not detected Not Detected [facility] Comment on above: The specimen is NEGATIVE for SARS-CoV-2, the novel coronavirus associated with COVID-19. A negative result does not rule out COVID-19. Greta SARS-CoV-2 for use on the [employer]8800 [employer] is a real-time RT-PCR test intended [...] this assay. Fact sheet for Healthcare Providers: https://www.fda.gov/media/170905/download Fact sheet for Patients: https://www.fda.gov/media/862419/download METHODOLOGY: RT-PCR Source .NASOPHARYNGEAL SWAB [facility] [id number] 06-06-2021 SARS-CoV-2 (COVID-19) RNA CHRISTY+probe Ql (Unsp spec) Normal [facility] Comment on above: Performed By: #### C OVID #### [facility] [address] [place] [address] [employer]: Mehdi Love MD [facility] [address] [place] [address] [employer]: Amol Purdy MD SARS-CoV-2 (COVID-19) RNA CHRISYT+probe Ql (Unsp spec) Not detected [facility] Comment on above: Result Comment: The specimen is NEGATIVE for SARS-CoV-2, the novel coronavirus associated with COVID-19. A negative result does not rule out COVID-19. Greta SARS-CoV-2 for use on the [employer]8800 [employer] is a real-time RT-PCR test intended [...] this assay. Fact sheet for Healthcare Providers: https://www.fda.gov/media/680451/download Fact sheet for Patients: https://www.fda.gov/media/690935/download METHODOLOGY: RT-PCR Performed By: #### C OVID #### [facility] [address] [place], [place] [id number] [employer]: Mehdi Love MD [facility] [address] [place] [address] [place] [address] [employer]: Amol Purdy MD [id number] 06-05-2021 SARS-CoV-2 (COVID-19) RNA CHRISTY+probe Ql (Unsp spec) .NASOPHARYNGEAL SWAB Normal [facility] Comment on above: Performed By: #### C OVID #### [facility] [address] [place], [place] [id number] [employer]: Mehdi Love MD [address] [place] [address] [employer]: Amol Purdy MD Vital Signs Date Time Vital Sign Value Performing Clinician Facility 01-03-2025 08:56-0400 Body weight 78.53 kg Emily GRAFF Work Phone: [facility] 01-03-2025 08:56-0400 Diastolic blood pressure 70 mm[Hg] Emily GRAFF Work Phone: [facility] 01-03-2025 08:56-0400 Systolic blood pressure 130 mm[Hg] Emily GRAFF Work Phone: [facility] 12-26-2024 10:46-0400 Body weight 76.66 kg Davis Kasey DO Work Phone: [facility] 12-26-2024 10:46-0400 Diastolic blood pressure 78 mm[Hg] Davis Kasey DO Work Phone: [facility] 12-26-2024 10:46-0400 Systolic blood pressure 128 mm[Hg] Davis Kasey DO Work Phone: [facility] 12-13-2024 14:19-0400 Body weight 75.75 kg Emily Debi PA Work Phone: [facility] 12-13-2024 14:19-0400 Diastolic blood pressure 64 mm[Hg] Emily Debi PA Work Phone: [facility] 12-13-2024 14:19-0400 Systolic blood pressure 112 mm[Hg] Emily Mereta PA Work Phone: [facility] 12-05-2024 14:22-0400 Body weight 74.39 kg Davis Kasey DO Work Phone: [facility] 12-05-2024 14:22-0400 Diastolic blood pressure 68 mm[Hg] Davis Kasey DO Work Phone: [facility] 12-05-2024 14:22-0400 Systolic blood pressure 120 mm[Hg] Davis Kasey DO Work Phone: [facility] 11-28-2024 11:59-0400 Body weight 73.71 kg Emily Debi PA Work Phone: [facility] 11-28-2024 11:59-0400 Diastolic blood pressure 62 mm[Hg] Emily Debi PA Work Phone: [facility] 11-28-2024 11:59-0400 Systolic blood pressure 122 mm[Hg] Emily Debi PA Work Phone: [facility] 11-14-2024 13:14-0400 Body weight 73.39 kg Davis Kasey DO Work Phone: [facility] 11-14-2024 13:14-0400 Diastolic blood pressure 70 mm[Hg] Davis Kasey DO Work Phone: [facility] 11-14-2024 13:14-0400 Systolic blood pressure 110 mm[Hg] Davis Kasey DO Work Phone: [facility] 10-31-2024 08:57-0400 Body weight 70.31 kg Emily Debi PA Work Phone: [facility] 10-31-2024 08:57-0400 Diastolic blood pressure 68 mm[Hg] Emily Solis PA Work Phone: [facility] 10-31-2024 08:57-0400 Systolic blood pressure 114 mm[Hg] Emily Debi PA Work Phone: [facility] 10-17-2024 13:26-0400 Body weight 68.61 kg Davis Kasey DO Work Phone: [facility] 10-17-2024 13:26-0400 Diastolic blood pressure 64 mm[Hg] Davis Kasey DO Work Phone: [facility] 10-17-2024 13:26-0400 Systolic blood pressure 122 mm[Hg] Davis Kasey DO Work Phone: [facility] 09-27-2024 14:54-0400 Body weight 65.32 kg Emily Solis PA Work Phone: [facility] 09-27-2024 14:54-0400 Diastolic blood pressure 62 mm[Hg] Emily Solis PA Work Phone: [facility] 09-27-2024 14:54-0400 Systolic blood pressure 110 mm[Hg] Emily Debi PA Work Phone: [facility] 09-05-2024 07:54-0400 Body height 167.6 cm Harman Linn MD Work Phone: [facility] 09-05-2024 07:54-0400 Body mass index (BMI) [Percentile] Per age and sex 57.17 % Harman Linn MD Work Phone: [facility] 09-05-2024 07:54-0400 Body mass index (BMI) [Ratio] 22.12 kg/m2 Harman Linn MD Work Phone: [facility] 09-05-2024 07:54-0400 Body weight 62.14 kg Harman Linn MD Work Phone: [facility] 09-05-2024 07:54-0400 Diastolic blood pressure 73 mm[Hg] Harman Linn MD Work Phone: [facility] 09-05-2024 07:54-0400 Heart rate 106 /min Harman Linn MD Work Phone: [facility] 09-05-2024 07:54-0400 Systolic blood pressure 119 mm[Hg] Harman Linn MD Work Phone: [facility] 08-30-2024 09:37-0500 Body weight 60.38 kg Davis Kasey DO Work Phone: [facility] 08-30-2024 09:37-0500 Diastolic blood pressure 64 mm[Hg] Davis Kasey DO Work Phone: [facility] 08-30-2024 09:37-0500 Systolic blood pressure 110 mm[Hg] Davis Kasey DO Work Phone: [facility] 08-01-2024 08:42-0500 Body weight 57.34 kg Emily GRAFF Work Phone: [facility] 08-01-2024 08:42-0500 Diastolic blood pressure 80 mm[Hg] Emily GRAFF Work Phone: [facility] 08-01-2024 08:42-0500 Systolic blood pressure 110 mm[Hg] Emily GRAFF Work Phone: [facility] 07-04-2024 11:22-0500 Body weight 57.15 kg Davis Kasey DO Work Phone: [facility] 07-04-2024 11:22-0500 Diastolic blood pressure 62 mm[Hg] Davis Kasey DO Work Phone: [facility] 07-04-2024 11:22-0500 Systolic blood pressure 90 mm[Hg] Davis Kasey DO Work Phone: [facility] 06-10-2021 09:52-0500 Body temperature 97.11 [degF] Aneta Sanderson MD Work Phone: [facility] 06-10-2021 09:52-0500 Diastolic blood pressure 72 mm[Hg] Aneta Sanderson MD Work Phone: [employer] 06-10-2021 09:52-0500 Heart rate 65 /min Aneta Sanderson MD Work Phone: [facility] 06-10-2021 09:52-0500 Respiratory rate 16 /min Aneta Sanderson MD Work Phone: [facility] 06-10-2021 09:52-0500 SaO2% (BldA) [Mass fraction] 100 % Aneta Sanderson MD Work Phone: [facility] 06-10-2021 09:52-0500 Systolic blood pressure 103 mm[Hg] Aneta Sanderson MD Work Phone: [employer] 06-10-2021 07:20-0500 Body height 165.1 cm Aneta Sanderson MD Work Phone: [facility] 06-10-2021 07:20-0500 Body mass index (BMI) [Percentile] Per age and sex 50.56 % Aneta Sanderson MD Work Phone: [facility] 06-10-2021 07:20-0500 Body mass index (BMI) [Ratio] 20.3 kg/m2 Aneta Sanderson MD Work Phone: [facility] 06-10-2021 07:20-0500 Body weight 55.34 kg Aneta Sanderson MD Work Phone: [employer] Encounters Encounter Date Encounter Type Care Provider Facility Start: 01-03-2025 End: 01-03-2025 Bamboo flowsheet Emily GRAFF Work Phone: [facility] Start: 01-03-2025 End: 01-03-2025 Bamboo flowsheet Emily GRAFF Work Phone: [facility] Start: 01-03-2025 End: 01-03-2025 flow sheet Emily GRAFF Work Phone: [facility] Comment on above: 39 weeks gestation o f ([facility]); Third trimester ([facility]); Low serum iron Start: 01-03-2025 End: 01-03-2025 ambulatory EMILY DEBI Not Available Start: 12-26-2024 End: 12-26-2024 Bamboo flowsheet Davis Kasey DO Work Phone: [facility] Start: 12-26-2024 End: 12-26-2024 Bamboo flowsheet Davis Kasey DO Work Phone: [facility] Start: 12-26-2024 End: 12-26-2024 flow sheet Davis Kasey DO Work Phone: [facility] Comment on above: Third trimester preg ruby ([facility]); 38 weeks gestation of ([facility]) Start: 12-26-2024 End: 12-26-2024 ambulatory DAVIS KASEY Not Available Start: 12-13-2024 End: 12-13-2024 Bamboo flowsheet Emily Solis PA Work Phone: [facility] Start: 12-13-2024 End: 12-13-2024 Bamboo flowsheet Emily Solis PA Work Phone: [facility] Start: 12-13-2024 End: 12-13-2024 flow sheet Emily Solis PA Work Phone: [facility] Comment on above: Third trimester preg ruby ([facility]); 36 weeks gestation of ([facility]) Start: 12-13-2024 End: 12-13-2024 ambulatory EMILY DEBI Not Available Start: 12-05-2024 End: 12-05-2024 ambulatory DAVIS KASEY [...] 10-16-2024 End: 10-16-2024 ambulatory DAVIS R KASEY [facility] Start: 09-27-2024 End: 09-27-2024 flow sheet Emily [...] Work Phone: [facility] Unsolicited Start: 09-05-2024 End: 09-05-2024 Office consultation new/estab patient 60 min Harman Linn MD Work Phone: [facility] Comment on above: Family history of co mplex congenital heart disease (Primary Dx) Start: 09-05-2024 End: 09-05-2024 Orders Only Juliette Che RN [facility] Comment on above: Family history [...] Only Yvette Khan RN [facility] Comment on above: Encounter for anatomic survey (Primary Dx) Start: 07-10-2024 End: 07-10-2024 Telephone encounter Yvette Khan RN [facility] Comment on above: Appointment Start: [...] 05-01-2024 End: 05-01-2024 Clinisync Result Encounter Davis Parks DO Work Phone: [facility] Unsolicited Start: 05-01-2024 End: 05-01-2024 Clinisync Result Encounter Davis Parks DO Work Phone: [facility] Unsolicited Start: 09-10-2022 End: 09-11-[address] DAVIS PARKS . Facility: Start: 07-02-2021 End: 07-05-2021 ambulatory [facility] Start: 06-10-2021 End: 06-10-2021 ambulatory ANETA SANDERSON [facility] Start: 06-10-2021 End: 06-10-2021 Subsequent hospital visit by physician Aneta Sanderson MD Work Phone: [facility] Start: 06-05-2021 End: 06-10-2021 ambulatory [facility] Start: 06-05-2021 End: 06-09-2021 Patient encounter status [facility] Schedule [facility] PRE ADMIT Start: 06-05-2021 End: 06-09-2021 Subsequent hospital visit by physician [facility] Covid19 Pat Screening Schedule [facility] PRE ADMIT Comment on above: Preop testing Procedures Date Procedure Procedure Detail Performing Clinician Start: 01-03-2025 Urnls dip stick/tabl et rgnt non-auto w/o micrscp Emily GRAFF Work Phone: Start: 12-26-2024 Urnls dip stick/tabl et rgnt non-auto w/o micrscp Davis Kasey DO Work Phone: Start: 12-13-2024 Urnls dip stick/tabl et rgnt [...] Adult BMI Screening Adult BMI Screen ing [facility] Start: 09-05-2025 Tobacco Screening Tobacco Screening [facility] Start: 09-05-2025 End: 09-05-2025 US MFM with or without consult US MFM with or without consult Imaging Routine Family history of complex congenital heart disease Encounter for follow-up ultrasound of anatomy Expected: 09/05/2025 (Approximate), Expires: 09/05/2025 [employer] Work Phone: Comment on above: Expected: 09/05/2025 (Approximate), Expires: 09/05/2025 Start: 01-03-2025 End: 01-03-2025 Patient encounter procedure 01/03/2025 8:50 AM EDT Routine [facility] [address] [place] [address] Emily Solis PA [address] [place] [address] Arrived [facility] Comment on above: Arrived Start: 12-26-2024 End: 12-26-2024 Patient encounter procedure 12/26/2024 10:50 AM EDT Routine [facility] [address] [place] [address] Davis Parks DO [address] [place] [address] Arrived [facility] Comment on above: Arrived Start: 12-18-2024 End: 12-18-2024 Patient encounter procedure 12/18/2024 10:30 AM EDT Routine [facility] [address] [facility] [facility] [place] [phone] Davis Parks, DO [address] [facility] [place] [address] [facility] Start: 12-13-2024 End: 12-13-2025 CULTURE, GROUP B STREP WITH SUSCEPTIBLITY CULTURE, GROUP B STREP WITH SUSCEPTIBLITY Lab Routine Third trimester ([facility]) Expected: 12/13/2024, Expires: 12/13/2025 [facility] Work Phone: Comment on above: Expected: 12/13/2024 , Expires: 12/13/2025 Start: 12-13-2024 End: 12-13-2024 Patient encounter procedure [facility] Comment on above: Arrived Start: 12-05-2024 End: 12-05-2024 Patient encounter procedure 12/05/2024 2:00 PM EDT Routine [facility] [address] [facility] [facility] [place] [phone] Davis Parks, DO [address] [place] [address] [place] [address] [facility] Start: 11-28-2024 End: 11-28-2024 Patient encounter procedure 11/28/2024 11:30 AM EDT Routine [facility] [address] [place] [phone] Emily Solis, PA [address] [facility] [place] [address] [facility] Start: 11-28-2024 End: 11-28-2024 Professional / ancillary services management 11/28/2024 11:00 AM EDT Ancillary Procedure [facility] [address] [facility] [facility] [place] [address] [facility] Start: 11-14-2024 End: 11-14-2024 Patient encounter procedure 11/14/2024 1:00 PM EDT Routine [facility] [address] [place] [address] Davis Parks DO [address] [facility] [place] [address] [facility] Start: 10-31-2024 End: 03-03-2025 [...] encounter procedure 10/16/2024 8:00 AM EDT Appointment [facility] [address] [place] [address] [facility] Start: 09-27-2024 End: 09-27-2024 Patient encounter procedure [facility] Comment on above: Arrived Start: 08-30-2024 End: 08-30-2025 CBC panel - Blood by Automated count CBC Lab Routine Diabetes mellitus screening Expected: 08/30/2024 (Approximate), Expires: 08/30/2025 [facility] Work Phone: Comment on above: Expected: 08/30/2024 (Approximate), Expires: 08/30/2025 Start: 08-30-2024 End: 08-30-2025 Measurement of glucose 1 hour after glucose challenge for glucose tolerance test Glucose tolerance, 1 hour Lab Routine Diabetes mellitus screening Expected: 08/30/2024 (Approximate), Expires: 08/30/2025 [facility] Comment on above: Expected: 08/30/2024 (Approximate), Expires: 08/30/2025 Start: 08-30-2024 End: 08-30-2024 Patient encounter procedure 08/30/2024 9:40 AM EST Routine [facility] [address] [place] [phone] Davis Parks, DO [address] [place] [address] [facility] Start: 08-30-2024 End: 08-30-2024 Professional / ancillary services management 08/30/2024 8:00 AM EST Ancillary Procedure [facility] [address] [place] [phone] [facility] Start: 08-11-2024 End: 07-11-2025 US MFM with or without consult US MFM with or without consult Imaging Routine Encounter for anatomic survey Expected: 08/11/2024 (Approximate), Expires: 07/11/2025 [employer] Work Phone: Comment on above: Expected: 08/11/2024 (Approximate), Expires: 07/11/2025 Start: 08-01-2024 End: 09-29-2024 Alpha fetoprotein, maternal Alpha fetoprotein, maternal Lab Routine Second trimester Expected: 08/01/2024 (Approximate), Expires: 09/29/2024 [facility] Comment on above: Expected: 08/01/2024 (Approximate), Expires: 09/29/2024 Start: 08-01-2024 End: 08-01-2025 US for US OB 14+ weeks anatomy scan Imaging Routine Screening, , for anatomic survey Expected: 08/01/2024, Expires: 08/01/2025 [facility] Comment on above: Expected: 08/01/2024 , Expires: [...] first trimester Expected: 06/08/2024 (Approximate), Expires: 06/08/2025 [facility] Comment on above: Expected: 06/08/2024 (Approximate), Expires: 06/08/2025 Start: 06-08-2024 End: 06-08-2025 US Pelvis transvaginal US OB transvaginal Imaging Routine Missed menses Expected: 06/08/2024 (Approximate), Expires: 06/08/2025 [facility] Comment on above: Expected: 06/08/2024 (Approximate), Expires: 06/08/2025 Start: 06-08-2024 End: 06-08-2024 ambulatory 06/08/2024 9:00 AM EST Initial [facility] [address] [place] [address] [facility] Start: 06-08-2024 End: 06-08-2024 Professional / ancillary services management 06/08/2024 8:30 AM EST Ancillary Procedure [facility] [address] [place] [id number] [facility] Start: 02-26-2024 Influenza vaccination Influenza Vacc ine [facility] Start: 10-16-2023 Adult BMI Screening Adult BMI Screen ing [facility] Start: 2021 MCV (2 - 2-dose series) MCV (2 - 2-d ose series) [facility] Start: 2021 Meningococcal (ACWY) vaccine (2 - 2-dose series) Meningococcal (ACWY) vaccine (2 - 2-dose series) [facility] Start: 07-29-2021 End: 07-29-2021 Patient encounter procedure 07/29/2021 Office Visit Aneta Sanderson MD [address] [place] [address] [facility] Pediatric GI Spec [place] Start: 06-10-2021 End: 06-10-2021 Colonoscopy w/biopsy [facility] Start: 06-10-2021 End: 06-10-2021 Egd transoral biopsy [facility] Start: 02-25-2021 Influenza vaccination Flu vaccine (# 1) [facility] Start: 2020 HIV screening HIV screen [facility] Start: 2020 HPV Vaccines (1 - 3-dose series) HPV Vaccines (1 - 3-dose series) [facility] Start: 2018 Varicella Vaccines ( 1 of 2 - 13+ 2-dose series) Varicella Vaccines (1 of 2 - 13+ 2-dose series) [facility] Start: 02-13-2018 DTaP,Tdap and Td Vaccines (2 - Td or Tdap) DTaP,Tdap and Td Vaccines (2 - Td or Tdap) [facility] Start: 02-13-2018 DTaP/Tdap/Td vaccine (2 - Td or Tdap) DTaP/Tdap/Td vaccine (2 - Td or Tdap) [facility] Start: 2017 Depression Screening Depression Scre ening [facility] Start: 2017 Tobacco Screening Tobacco Screening [facility] Start: 2016 HPV vaccine (1 - 2-d ose series) HPV vaccine (1 - 2-dose series) [facility] Start: 2010 COVID-19 Vaccine (1) COVID-19 Vaccin e (1) [facility] Start: 2006 Hepatitis A vaccine (1 of 2 - 2-dose series) Hepatitis A vaccine (1 of 2 - 2-dose series) [facility] Start: 2006 Hepatitis A Vaccines (1 of 2 - 2-dose series) Hepatitis A Vaccines (1 of 2 - 2-dose series) [facility] Start: 2006 Measles,Mumps,Rubell a (MMR) vaccine (1 of 2 - Standard series) Measles,Mumps,Rubella (MMR) vaccine (1 of 2 - Standard series) [facility] Start: 2006 MMR Vaccines (1 of 2 - Standard series) MMR Vaccines (1 of 2 - Standard series) [facility] Start: 2006 Varicella vaccine (1 of 2 - 2-dose childhood series) Varicella vaccine (1 of 2 - 2-dose childhood series) [facility] Start: 2005 Polio vaccine (1 of 3 - 4-dose series) Polio vaccine (1 of 3 - 4-dose series) [facility] Start: 2005 Hepatitis B vaccine (1 of 3 - 3-dose primary series) Hepatitis B vaccine (1 of 3 - 3-dose primary series) [facility] Start: 2005 Hepatitis B Vaccines (1 of 3 - 3-dose series) Hepatitis B Vaccines (1 of 3 - 3-dose series) [facility] Start: 2005 Screening for Chlamy michael trachomatis Chlamydia Screening [facility] Bacteria identified in Urine by Culture Urine culture Microbiology Routine Missed menses Ordered: 06/08/2024 [facility] Comment on above: Ordered: 06/08/2024 CBC W Auto Different ial panel - Blood CBC and differential Lab Routine Missed menses , unspecified gestational age Ordered: 06/08/2024 [facility] Comment on above: Ordered: 06/08/2024 CHLAMYDIA TRACHOMATI S (GENITO/STI) CHLAMYDIA TRACHOMATIS (GENITO/STI) Lab Routine STD exposure Vaginal discharge Ordered: 08/01/2024 [facility] Comment on above: Ordered: 08/01/2024 Hemoglobin A1c/Hemoglobin.total in Blood Hemoglobin A1c Lab Routine Missed menses , unspecified gestational age Ordered: 06/08/2024 [facility] Comment on above: Ordered: 06/08/2024 Hepatitis B virus surface Ag [Presence] in Serum or Plasma by Immunoassay Hepatitis B surface antigen Lab Routine Missed menses , unspecified gestational age Ordered: 06/08/2024 [facility] Comment on above: Ordered: 06/08/2024 Hepatitis C virus Ab [Presence] in Serum or Plasma by Immunoassay Hepatitis C antibody Lab Routine Missed menses , unspecified gestational age Ordered: 06/08/2024 [facility] Comment on above: Ordered: 06/08/2024 HIV-1/HIV-2 antigen/antibody combination immunoassay HIV-1 and HIV-2 antibodies Lab Routine Missed menses , unspecified gestational age Ordered: 06/08/2024 [facility] Comment on above: Ordered: 06/08/2024 End: 06-10-2021 Intermittent pulse oximetry Pulse Oximetry Spot Check Respiratory Care Routine One Time for 1 Occurrences starting 06/10/2021 until 06/10/2021 [employer] Phone: Comment on above: One Time for 1 Occur rences starting 06/10/2021 until 06/10/2021 Neisseria gonorrhoea e DNA [Presence] in Unspecified specimen by CHRISTY with probe detection Neisseria gonorrhea DNA probe, direct Lab Routine STD exposure Vaginal discharge Ordered: 08/01/2024 [facility] Comment on above: Ordered: 08/01/2024 Oxygen therapy [Mini [facility] Data Set] Initiate Oxygen Therapy Protocol Respiratory Care Routine Daily until discontinued starting 06/10/2021 [employer] Phone: Comment on above: Daily until disconti nued starting 06/10/2021 End: 06-10-2021 POCT urine POCT urine Point of Care Testing STAT One Time for 1 Occurrences starting 06/10/2021 until 06/10/2021 [employer] Phone: Comment on above: One Time for 1 Occur rences starting 06/10/2021 until 06/10/2021 Reagin Ab [Presence] in Serum by RPR RPR Lab Routine Missed menses , unspecified gestational age Ordered: 06/08/2024 [facility] [employer] Comment on above: Ordered: 06/08/2024 Rubella antibody, IgG Rubella an tibody, IgG Lab Routine Missed menses , unspecified gestational age Ordered: [facility]08/2024 [facility] Comment on above: Ordered: 06/08/2024 SURESWAB(R) ADVANCED VAGINITIS PLUS, TMA SURESWAB(R) ADVANCED VAGINITIS PLUS, TMA Pathology and Cytology Routine STD exposure Vaginal discharge Ordered: 08/01/2024 [employer] Phone: Comment on above: Ordered: 08/01/2024 Surgical Pathology Surgical Path ology Lab Routine Release Upon Ordering for 1 Occurrences starting 06/10/2021 [employer] Phone: Comment on above: Release Upon Orderin g for 1 Occurrences starting 06/10/2021 End: 06-10-2021 Urine , POCT Urine , POCT Point of Care Testing Routine One Time for 1 Occurrences starting 06/10/2021 until 06/10/2021 [employer] Phone: Comment on above: One Time for 1 Occur rences starting 06/10/2021 until 06/10/2021 Immunizations Immunization Date Immunization Notes Care Provider Susan stoll 01-16-2018 meningococcal polysaccharide (groups A, C, Y and W-135) diphtheria toxoid conjugate vaccine (MCV4P) [facility] Schedule [employer] 01-16-2018 tetanus toxoid, redu mary diphtheria toxoid, and acellular pertussis vaccine, adsorbed [facility] Schedule [employer] 01-16-2018 meningococcal vaccin e of unknown formulation and unknown serogroups [facility] [employer] Phone: Payers Date Payer Category Payer Medicaid [id number] 2022 Medicaid [id number] 2022 Private Health Insurance [id number] 2020 Managed Care Other (unspecified) [employer] [id number]. [id number] 2015 Unknown [id number] 1.2.840.302457.1.13.239.2. 7.3.314010.315 2015 Unknown [id number] 1.2.840.925837.1.13.239.2. 7.3.134348.315 2005 Unknown [id number] 2.16.840.1.441218.3.579.2. 1286 2005 Unknown [id number] 2.16840.1.156054.3.579.2. 1286 2005 Unknown [id number] 2.16.840.1.972707.3.579.2. 1286 2005 Unknown [id number] 2.16.840.1.734994.3.579.2. 1259 2005 Unknown [id number] 2.16.840.1.019996.3.579.2. 1259 2005 Unknown [id number] 2.16.840.1.298038.3.579.2. 1259 2005 Unknown [id number] 2.16.840.1.103896.3.579.2. 9 2005 Unknown [id number] 2.16.840.1.823166.3.579.2. 1258 2005 Unknown [id number] 2.16.840.1.270812.3.579.2. 1258 2005 Unknown [id number] 2.16.840.1.580346.3.579.2. 1258 2005 Unknown [id number] 2.16.840.1.175187.3.579.2. 1258 2005 Unknown [id number] 2.16.840.1.520399.3.579.2. 1258 2005 Unknown [id number] 2.16.840.1.855359.3.579.2. 1258 2005 Unknown [id number] 2.16.840.1.701201.3.579.2. 1258 2005 Unknown [id number] 2.16.840.1.193979.3.579.2. 1258 2005 Unknown [id number] 2.16.840.1.036832.3.579.2. 1258 2005 Unknown [id number] 2.16.840.1.913287.3.579.2. 1258 2005 Unknown [id number] 2.16.840.1.892243.3.579.2. 1259 1986 Unknown [id number] 2.16.840.1.309893.3.579.2. 175 1986 Unknown [id number] 2.16.840.1.002598.3.579.2. 173 1986 Unknown [id number] 2.16.840.1.297703.3.579.2. 593 1984 Unknown [id number] 2.16.840.1.988149.3.579.2. 173 1959 Unknown [id number] Social History Date Type Detail Facility Start: 02-12-2017 End: 06-29-2023 Tobacco smoking status NHIS Never smoked tobacco [employer] Start: 02-12-2017 End: 09-05-2024 Tobacco use and exposure Smokeless tobacco non-user [employer] Phone: Start: 06-09-2021 End: 06-10-2021 Alcohol intake Current non-drinker of alcohol (finding) [employer] Phone: Start: 2005 [facility]igned At [facility]: Exposure to SARS-CoV -2 (event) Not sure [employer] Phone: Start: 06-29-2023 End: 01-03-2025 Alcoholic beverage intake Lifetime non-drinker (finding) [facility] Start: 06-29-2023 End: 06-08-2024 History of Social function [facility] Start: 06-29-2023 End: 06-08-2024 Tobacco use panel [facility] Start: 06-29-2023 Alcohol Comment caffeine: none [facility] Start: 04-14-2024 [facility] Healt [facility] Start: 12-28-2020 End: 09-05-2024 Alcoholic beverage intake Ex-drinker (finding) [facility] Childcare Unknown [facility] Start: 01-28-2015 Sex Female (finding) [facility] Start: 2005 Sex assigned at Female [facility] Clinical Notes 06-09-2021 to 01-03-2025 PRERNA Glass - 01/03/2025 8:50 AM Ivana Deleon LPN - 12/26/2024 10:50 AM PRERNA Segundo - 12/13/2024 1:50 PM Ivana Deleon LPN - 12/05/2024 2:00 PM PRERNA Segundo - 11/28/2024 11:30 AM EDT Note Date & Type Note Facility 01-03-2025 History of Presen t illness Narrative Reason [...] nursing note reviewed. Exam conducted with a mds coordinator present. Vitals: Estimated body mass index is 21.16 kg/m as calculated from the following: Height as of 08/24/22: 5' 6 . Weight as of 08/24/22: 131 lb 1.9 oz. BP: 130/70 Patient's last menstrual period was 03/31/2024. ASSESSMENT & PLAN ICD-10-CM 1. 39 weeks gestation of ([facility]) Z3A.39 POCT urinalysis dipstick manually resulted 2. Third trimester ([facility]) Z34.93 POCT urinalysis dipstick manually resulted [...] of: PRERNA Glass documented in this encounter [facility] 12-26-2024 History of Presen t illness Narrative Reason [...] nursing note reviewed. Exam conducted with a mds coordinator present. Vitals: Estimated body mass index is 21.16 kg/m as calculated from the following: Height as of 08/24/22: 5' 6 . Weight as of 08/24/22: 131 lb 1.9 oz. BP: 128/78 Patient's last menstrual period was 03/31/2024. ASSESSMENT & PLAN ICD-10-CM 1. Third trimester ([facility]) Z34.93 POCT urinalysis dipstick manually resulted 2. 38 weeks gestation of ([facility]) Z3A.38 Return OB: Patient presents today for [...] Induction consents signed. Pt to report to [facility] at 0500 on 01/03/25. Orders Placed This Encounter Procedures POCT urinalysis dipstick manually resulted Follow Up: Patient is to return to office in 1 week for routine OB appointment. Documented by Ani Deleon LPN on behalf of: Davis Parks DO documented in this encounter [facility] 12-13-2024 History of Presen t illness Narrative [...] nursing note reviewed. Exam conducted with a mds coordinator present. Vitals: Estimated body mass index is 21.16 kg/m as calculated from the following: Height as of 08/24/22: 5' 6 . Weight as of 08/24/22: 131 lb 1.9 oz. BP: 112/64 Patient's last menstrual period was 03/31/2024. ASSESSMENT & PLAN ICD-10-CM 1. Third trimester ([facility]) Z34.93 POCT urinalysis dipstick manually resulted CULTURE, GROUP B STREP WITH SUSCEPTIBLITY CULTURE, GROUP B STREP WITH SUSCEPTIBLITY 2. 36 weeks gestation of ([facility]) Z3A.36 Patient is doing well but has [...] of: PRERNA Glass documented in this encounter [facility] 12-05-2024 History of Presen t illness Narrative [...] nursing note reviewed. Exam conducted with a mds coordinator present. Vitals: Estimated body mass index [...] Davis Parks DO documented in this encounter [facility] 11-28-2024 History of Presen t illness Narrative [...] week for routine OB appointment. Documented by PRENRA Glass on behalf of: PRERNA Glass documented in this encounter [facility] 11-14-2024 History of Presen t illness Narrative [...] nursing note reviewed. Exam conducted with a mds coordinator present. Vitals: Estimated body mass index [...] Davis Parks DO documented in this encounter [facility] 10-31-2024 History of Presen t illness Narrative [...] EYE SURGERY Left 2008 INNER EAR SURGERY 2007 tubes of ears REVIEW OF SYSTEMS Review [...] of: PRERNA Glass documented in this encounter [facility] 10-17-2024 History of Presen t illness Narrative [...] nursing note reviewed. Exam conducted with a mds coordinator present. Vitals: Estimated body mass index [...] Davis Parks DO documented in this encounter [facility] 09-27-2024 History of Presen t illness Narrative [...] of: PRERNA Glass documented in this encounter [facility] 09-05-2024 History of Presen t illness Narrative [...] Yes Have you been seen here at [facility] in a previous ? No Recent ER visits or hospitalizations? No Bring blood sugar log or meter with you today? (Please bring them with you for every visit at [facility]) N/A Flu vaccine (Apr-August)? 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 Patient does have 1 more ultrasound scheduled with us Thank you for allowing me to participate in [facility] . If there any questions please do not hesitate to contact us. Sincerely, HARMAN LINN MD documented in this encounter [employer] 08-30-2024 History of Presen t illness Narrative [...] nursing note reviewed. Exam conducted with a mds coordinator present. Vitals: Estimated body mass index [...] Davis Parks DO documented in this encounter [facility] 08-01-2024 History of Presen t illness [...] nursing note reviewed. Exam conducted with a mds coordinator present. Vitals: Estimated body mass index [...] of: PRERNA Glass documented in this encounter [facility] 07-10-2024 Miscellaneous Notes LMOM for return call to schedule survey/echo at 20w documented in this encounter [facility] 07-10-2024 Telephone encounter Note LMOM for return call to schedule survey/echo at 20w [facility] 07-04-2024 History of Presen t illness [...] nursing note reviewed. Exam conducted with a mds coordinator present. Vitals: Estimated body mass index [...] or undercooked meat, and stay away from [facility]. Patient has been consulted regarding any further do's and don'ts of . Patient voiced understanding and all questions and concerns were answered. FOB has heart issue pt being referred to [facility] for level II ultrasound and echo. Orders Placed This Encounter Procedures POCT urinalysis dipstick manually resulted Follow Up: Patient is to return in 4 weeks for routine OB appointment. Documented by Ani Deleon LPN on behalf of: Davis Parks DO documented in this encounter [facility] 06-08-2024 History of Presen t illness [...] or undercooked meat, and stay away from [facility]. Patient has also been advised to [...] Evonne Vieira LPN documented in this encounter [facility] [employer] 06-09-2021 History of Presen t illness Narrative 3 # 8 oz. @ /31 week delivery/NICU X 9 weeks/ vented documented in this encounter [employer] Phone: Evaluation note Diagnosis Preop testing Preoperative examination, unspecified documented in this encounter [employer] Phone: evaluation note* Diagnosis Chronic generalized abdominal pain Abdominal pain, generalized Microcytic anemia Iron deficiency anemia, unspecified documented in this encounter [employer] Phone: evaluation note* Diagnosis Missed menses , unspecified gestational age Encounter for supervision of normal first in first trimester Nausea and vomiting during documented in this encounter [facility] [employer] [facility]* Diagnosis Second trimester state, incidental 13 weeks gestation of documented in this encounter [facility] [employer] [facility]* Diagnosis Encounter for anatomic survey- Primary [facility] Diagnosis Second trimester state, incidental 17 weeks gestation of STD exposure Vaginal discharge Leukorrhea, not specified as infective Screening, , for anatomic survey Encounter for anatomic survey documented in this encounter [facility]* Diagnosis Diabetes mellitus screening Screening for diabetes mellitus Second trimester state, incidental 21 weeks gestation of documented in this encounter [facility]* Diagnosis Family history of complex congenital heart disease- Primary [facility] Diagnosis Family history of complex congenital heart disease- Primary Encounter for follow-up ultrasound of anatomy [facility] Diagnosis Second trimester state, incidental 25 weeks gestation of documented in this encounter [facility]* Diagnosis Third trimester state, incidental 28 weeks gestation of documented in this encounter [facility]* Diagnosis Third trimester state, incidental 30 weeks gestation of size inconsistent with dates documented in this encounter [facility]* Diagnosis 32 weeks gestation of Third trimester state, incidental documented in this encounter [facility]* Diagnosis Third trimester state, incidental 34 weeks gestation of documented in this encounter [facility]* Diagnosis 35 weeks gestation of Third trimester state, incidental documented in this encounter [facility]* Diagnosis Third trimester ([facility]HS-H[facility]) state, incidental 36 weeks gestation of ([facility]HS-HCC) documented in this encounter [facility]* Diagnosis Third trimester (HHS-HCC) state, incidental 38 weeks gestation of ([facility]HCC) documented in this encounter [facility]* Diagnosis 39 weeks gestation of ([facility]HS-HCC) Third trimester (HHS-HCC) state, incidental Low serum iron documented in this encounter [facility] Discharge instructions* Instructions* Aylin Barnard RN [...] the office for an appointment /further instructions. [phone] 4. NORMAL CHANGES YOU MAY EXPERIENCE AFTER ENDOSCOPY: EGD: -Sore throat after EGD -Passing of gas for several hours -A bloated feeling and belching from air in the stomach -If a biopsy was done, you may spit up Some blood tinged mucous CALL YOUR PHYSICIAN AT [phone] IF YOU EXPERIENCE ANY OF THE FOLLOWIN.Passing [...] the office for an appointment /further instructions. [phone] 4. NORMAL CHANGES YOU MAY EXPERIENCE AFTER COLONOSCOPY: -Passing of gas for several hours after colonoscopy -Some mild abdominal cramping -If a biopsy/polypectomy was done you may see some spotting of blood on the tissue when wiping -You may feel fatigued for the 24-48 hours due to the prep, sedation and procedure. CALL YOUR PHYSICIAN AT [phone] IF YOU EXPERIENCE ANY OF THE FOLLOWIN.Passing [...] urinate call your doctor documented in this [facility] [employer] [facility] Phone: InstructionsNot on filedocumented in this encounter [facility] filedocumented in this encounter [facility] on filedocumented in this encounter [facility]Not on filedocumented in this encounter [facility] Narrative* Auth/Cert Specialty Diagnoses / Procedures Referred By Marjorie frances Referred To Contact Diagnoses Abdominal pain Bloody stool ABDOMINAL PAIN, BLOODY STOOL Procedures DC EGD TRANSORAL BIOPSY SINGLE/MULTIPLE DC COLONOSCOPY W/BIOPSY SINGLE/MULTIPLE DC EGD BALLOON DILATION ESOPHAGUS <30 MM DIAM DC COLSC FLX W/RMVL OF TUMOR POLYP LESION SNARE TQ EGD BIOPSY COLONOSCOPY WITH BIOPSY - GI SCHEDULED Aneta Sanderson MD [address] [place] [address] [employer] [address] [place] [address] Referral ID Status Reason Start Date Expiration Date Visits Re quested Visits Authorized [id number] 1 1 [employer] Phone: Advance Directives No Advanced Directives Records FoundDocuments on File Type Date Recorded 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 ACP-Advance Directive ACP-Power of Storage Engineer Documents on File Type Date Recorded 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 ACP-Advance Directive ACP-Power of Storage Engineer Summary Purpose Family History No Family History Records FoundNo Family History Records FoundNo Family History Records FoundNo Family History Records FoundNo Family History Records FoundNo Family History Records Found Additional Source Comments Care Teams (unrecognized sec tion and content) Nutrition Teacher Relationship Specialty Start Date End Date Mary Queen DO PCP - General Pediatrics 07/14/18 Nutrition Teacher Relationship Specialty Start Date End Date Mary Queen DO PCP - General Pediatrics 07/14/18 Nutrition Teacher Relationship Specialty Start Date End Date Rudolph Ortiz MD [address] [place] [address] PCP - General 12/06/12 Nutrition Teacher Relationship Specialty Start Date End Date Rudolph Ortiz MD [address] [place] [address] PCP - General 12/06/12 Nutrition Teacher Relationship Specialty Start Date End Date Rudolph Ortiz MD [address] [place] [address] PCP - General 12/06/12 Nutrition Teacher Relationship Specialty Start Date End Date Rudolph Ortiz MD [address] [place] [address] PCP - General 12/06/12 Scheduled Active and [...] section and content) DATE CREATED AUTHOR 06/12/2021 [facility] DATE CREATED AUTHOR AUTHOR'S ORGANIZ ATION [facility]/2021 [facility] DATE CREATED AUTHOR AUTHOR'S ORGANIZ ATION 09/27/2022 [facility] DATE CREATED AUTHOR AUTHOR'S ORGANIZ ATION 09/07/2024 [facility] DATE CREATED AUTHOR AUTHOR'S ORGANIZ ATION 10/17/2024 [facility] DATE CREATED AUTHOR AUTHOR'S ORGANIZ ATION 01/07/2025 [facility] EPIC Reason for Visit (unrecogniz ed section and content) Reason Comments Routine Visit Specialty Diagnoses / Procedures Referred By Contamber t Referred To Contact Obstetrics and Gynecology Diagnoses [facility] Procedures DC UNLISTED EVALUATION AND MANAGEMENT SERVICE Harman Linn MD Phone: tel: fax: Davis Parks, [address] [place] [address] Phone: tel: fax: Referral ID Status Reason Start Date Expiration Date Visits Re quested Visits Authorized [id number] Closed 09/05/2024 03/04/2025 1 1 Reason Comments [...] BE BASED ON THE PRIMARY CLINICAL RECORDS. [facility] provides no warranty or guarantee of the accuracy or completeness of information in this document.
--- OUTSIDE RECORDS SUMMARY | 2025-01-08 05:10 | XMS_ITS | Encounter Summary ---
Author Organization [facility] Address [address] [place] [address] Care Team Providers Care Head Waiter/Waitress Name Role Phone Unavailable Primary Care Provider Unavailabl e Encounter Details Date Type Department Care Team (Late st Contact Info) Description 12/26/2024 Telephone [facility] OB [address] [place] [address] Davis Parks, DO [address] [place], [place] [id number] Social History Tobacco Use Types Packs/Day Years [...] on file documented as of this encounter Miscellaneous Notes * Telephone Encounter - Faustina Colón LPN - 12/26/2024 4:14 PM EDT Patient Sohail called (on HIPAA) and states that patient was in office today and he is asking about paperwork that she signed thinking consent forms for delivery and is wanting to know if shehas to stay with that time of if she can cancel that. Sohail was advised that patient can cancel atanytime it is not set in stone. Sohail states she was a little overwhelmed and she may be calling the office to cancel the induction. Sohail was advised to let patient know we are here half day 12/27/2024 and closed 12/28/2024. PVU documented in this encounter Plan of Treatment Not on file documented as of this encounter Visit Diagnoses Not on filedocumented in this encounter
--- OUTSIDE RECORDS SUMMARY | 2025-01-08 05:10 | XMS_ITS | Clinical Summary ---
Author Organization [facility] Healthcare Address [address] [place] [address] Care Team Providers Care Quality Coordinator Name Role Phone Unavailable Primary Care [...] (Allura Red) 08/14/2012 Can't digest it Medications ondansetron ODT (Zofran-ODT) 4 MG disintegrating tablet Take 4 mg by mouth Active metoclopramide (Reglan) 10 MG tabletIndications: Nausea Take 1 tablet (10 mg) by mouth in the morning and 1 tablet (10 mg) at noon and 1 tablet (10 mg) in the evening. Take before meals. Take 1 tablet by mouth 30 minutes prior to meals 3 times daily as needed for nausea.. 90 tablet 2 06/29/19 025 Discontinued Encounters Date Type Department Care Team Description 01/03/2025 8:50 AM EDT Routine [facility] [address] [place] [address] Emily Carrera PA 39 weeks gestation of ([facility]); Third trimester ([facility]); Low serum iron 01/03/2025 Bamboo flowsheet [facility] OB [address] [place] [address] Emily Carrera PA 01/01/2025 Telephone [facility] OB [address] [place] [address] Martha Heath MA 12/26/2024 10:50 AM EDT Routine [facility] OB [address] [place] [address] Davis Parks DO Third trimester ([facility]); 38 weeks gestation of ([facility]) 12/26/2024 Telephone [facility] OB [address] [place] [address] Davis Parks, 12/26/2024 Abstract [facility] OB [address] [place] [address] Davis Parks, 12/26/2024 Bamboo flowsheet [facility] OB [address] [place] [address] Davis Parks, 12/13/2024 1:50 PM EDT Routine [facility] OB [address] [place] [address] Emily Carrera PA Third trimester ([facility]); 36 weeks gestation of ([facility]) 12/13/2024 Bamboo flowsheet [facility] OB [address] [place] [address] Emily Carrera PA 12/05/2024 2:00 PM EDT Routine [facility] OB [address] [place] [address] Davis Parks, 35 weeks gestation of ([facility]); Third trimester ([facility]) 12/05/2024 Bamboo flowsheet [facility] OB [address] [place] [address] [place] [address] Davis Parks DO 11/28/2024 11:30 AM EDT Routine [facility] [address] [place] [address] Emily Carrera PA Third trimester ([facility]); 34 weeks gestation of ([facility]) 11/28/2024 11:00 AM EDT Ancillary Procedure [facility] OB [address] [place] [address] [place] [address] Third trimester ([facility]); size inconsistent with dates ([facility]) 11/25/2024 Travel 11/14/2024 1:00 PM EDT Routine [facility] OB [address] [place] [address] [place] [address] Davis Parks DO 32 weeks gestation of ([facility]); Third trimester ([facility]) 11/14/2024 Bamboo flowsheet NOMS [address] [place] [address] Davis Parks DO 10/31/2024 8:50 AM EDT Routine NOM[facility] [address] [place] [address] Emily Carrera PA Third trimester ([facility]); 30 weeks gestation of ([facility]); size inconsistent with dates ([facility]) 10/31/2024 Bamboo flowsheet [facility] OB [address] [place] [address] [place] [address] Emily Carrera PA 10/30/2024 Travel 10/17/2024 1:20 PM EDT Routine [facility] OB [address] [place] [address] [place] [address] Davis Parks DO Third trimester ([facility]); 28 weeks gestation of ([facility]) 10/17/2024 Bamboo flowsheet [facility] OB [address] [place] [address] [place] [address] Davis Parks DO from Last 3 Months Family [...] oz) 01/03/2025 8:56 A M EDT Height 167.6 cm (5' 6 ) 08/24/2022 12:00 PM EST Body Mass Index - - Plan of Treatment Not on file Procedures Procedure Name Priority Date/Time Associated Diagnosis Comments POCT URINALYSIS DIPSTICK Routine 01/03/2025 9:03 AM EDT 39 weeks gestation of ([facility]) Third trimester ([facility]) Low serum iron POCT URINALYSIS DIPSTICK Routine 12/26/2024 10:53 AM EDT Third trimester ([facility]) POCT URINALYSIS DIPSTICK Routine 12/13/2024 2:19 PM EDT Third trimester ([facility]) CULTURE, GROUP B STREP WITH SUSCEPTIBLITY Routine 12/13/2024 2:10 PM EDT Third trimester ([facility]) POCT URINALYSIS DIPSTICK Routine 12/05/2024 2:25 PM EDT 35 weeks gestation of ([facility]) Third trimester ([facility]) POCT URINALYSIS DIPSTICK Routine 11/28/2024 12:05 PM EDT Third trimester ([facility]) US OB FOLLOW UP TRANSABDOMINAL APPROACH Routine 11/28/2024 11:25 AM EDT Third trimester ([facility]) size inconsistent with dates ([facility]) POCT URINALYSIS DIPSTICK Routine 11/14/2024 1:21 PM EDT 32 weeks gestation of ([facility]) Third trimester ([facility]) POCT URINALYSIS DIPSTICK Routine 10/31/2024 11:01 AM EDT Third trimester ([facility]) POCT URINALYSIS DIPSTICK Routine 10/17/2024 2:31 PM EDT Third trimester ([facility]) from Last 3 Months Results * (ABNORMAL) POCT urinalysis dipstick manually resulted (01/03/2025 9:03 AM EDT) Only the most recent of8 resultswithin the time period is included. Color, [...] TEST ENTER/EDIT OR DERABLES Final Result * CULTURE, GROUP B STREP WITH SUSCEPTIBLITY (12/13/2024 2:10 PM EDT) Swab 12/13/2024 2:10 PM EDT Emily GRAFF LAB BLOOD ORDERABLES Final Resul t EXTERNAL LAB * US OB follow up transabdominal approach [...] II, MD, PHD at 29-Nov-2024 08:51:59 AM [facility] Procedure Note Ira Rivas MD - [...] signed by IRA RIVAS II, MD, PHD [id number] 08:51:59 AM [facility] us Emily GRAFF IMG OB US PROCEDURES Final Resul t from Last 3 Months Insurance [employer] MEDICAID [facility]
--- OUTSIDE RECORDS SUMMARY | 2025-01-08 05:10 | XMS_ITS | Encounter Summary ---
Author Organization [facility] Address [address] [place] [address] Care Team Providers Care Painter Aircraft Name Role Phone Unavailable Primary Care Provider Unavailabl e Encounter Details Date Type Department Care Team (Late st Contact Info) Description 06/08/2024 Clinisync Result Encounter [facility] External Department Unsolicited Davis Parks, DO [address] [facility] [place] [address] Social History Tobacco Use Types Packs/Day Years [...] AM EST Narrative 06/08/2024 9:09 AM EST The [address] [address] Ultrasound Report Signed Patient: NEEMA MAIN MR#: [id number] : 2005 Acct:[id number] Age/Sex: 18 / F ADM Date: 06/08/24 Loc: [facility] Attending Dr: Davis Parks D.O. Ordering Physician: Daivs Parks D.O. Date of Service: 06/08/24 Procedure(s): US OB transvaginal Accession Number(s): [id number] cc: Davis Parks D.O.; Physician,Non-Staff Briana The [address] [address] Patient Name: NEEMA MAIN MRN: [id number] date: 2005 Sex: F Assigned Patient Location: [facility] Current Patient Location: [facility] Accession/Order Number: [id number] Exam Date: 06/08/2024 08:30 Report Date: 06/08/2024 [...] M.D. Signed By: 06/08/24908 DD/ 5 TD/TT: Concrete Pavement Installer: Procedure Note Radiology, Radiologist, MD - 06/08/[address] [address] Ultrasound Report Signed Patient: NEEMA MAIN MMR#: [id number] : 2005cct:[id number] Age/Sex: 18 / FADM Date: 06/08/24 Loc: [facility] Attending Dr: Davis Parks D.O. Ordering Physician: Davis Parks D.O. Date of Service: 06/08/24 Procedure(s): US OB transvaginal Accession Number(s): [id number] cc: Davis Parks D.O.; Physician,Non-Staff Briana The [place] [id number] Patient Name: NEEMA MAIN MRN: [id number] date: 2005 Sex: F Assigned Patient Location: [facility] Current Patient Location: [facility] Accession/Order Number: [id number] Exam Date: 06/08/2024 08:30 Report Date: 06/08/2024 [...] Cross M.D. Signed By:06/08/24908 DD/ 5 TD/TT: Concrete Pavement Installer: us Davis Parks DO [facility] Final Result documented in this encounter Visit Diagnoses Not on filedocumented in this encounter
--- OUTSIDE RECORDS SUMMARY | 2025-01-08 05:10 | XMS_ITS | Clinical Summary ---
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 Ultrasound 10/16/2024 8:12 AM EDT Narrative 10/16/2024 2:59 PM EDT NAME: ETELVINA BETHEA : 2005 SEX: F Accession Number: [id number] ORDERING PHYSICIAN: HARMAN LINN REFERRING PHYSICIAN: MARK FLOOD Coding ----- --------- Procedures 11101: Follow-up Ultrasound, per fetus 03327: Echocardiography, , cardiovascular system, real time with [...] Hadlock OFD 94.8 mm 30w 4d 94% Migno HC 260.6 mm 28w 2d 17% Hadlock Cerebellum tr 32.3 mm 27w 4d 29% Hill AC 235.3 mm 27w 6d 26% Hadlock Femur 52.7 mm 28w 0d 24% Hadlock Humerus 47.0 mm 27w 5d 22% Mingo HC / AC 1.11 EFW 1,142 g 20% Hadlock EFW (lb) 2 lb EFW (oz) 8 oz EFW by: Hadlock ([id number]) Extended Tibia 46.0 mm 28w 0d 36% Mingo Asl Interpreter 4.6 mm CM 5.0 mm 8% Nicolaides [...] Heart / Thorax 4-chamber view. 3-vessel view. 3-xywsna-qwgibzv view. Great vessels. Diaphragm. The following structures [...] normal RVOT view normal 3-vessel view suboptimal 3-omapsl-wilpjgs view suboptimal Aortic arch view normal Ductal [...] BETHEA : 2005 SEX: F Accession Number: [id number] ORDERING PHYSICIAN: HARMAN LINN REFERRING PHYSICIAN: MARK FLOOD Coding ----- --------- Procedures 88857: Follow-up Ultrasound, per fetus 96181: Echocardiography, , cardiovascular system, real timewith image [...] EFW (oz) 8 oz EFW by: Hadlock ([id number]) Extended Tibia 46.0 mm 28w 0d 36% Mingo Asl Interpreter 4.6 mm CM 5.0 mm 8% Nicolaides [...] Heart / Thorax 4-chamber view. 3-vessel view. 2-uvgsif-hzmvhhg view. Greatvessels. Diaphragm. The following structures were [...] normal RVOT view normal 3-vessel view suboptimal 6-ibqbgp-wtjgecd view suboptimal Aortic arch view normal Ductal [...] byprimary OB provider unless otherwise specified by [facility]. Results forwarded to ordering provider so they can follow up with thepatient as necessary. Harman Linn MD [facility] ORDERABLES Final Resul t from Last 3 Months Insurance [employer] [address] MEDICAID [employer] [address] MEDICAID Care Teams Mill House Supervisor Relationship Specialty Start Date End Date Rudolph Ortiz MD [address] [place] [id number] PCP - General 12/06/12
--- OUTSIDE RECORDS SUMMARY | 2025-01-08 05:10 | XMS_ITS | Encounter Summary ---
Author Organization [facility] Address [address] [place] [address] Care Team Providers Care Glass Or Mirror Inspector Name Role Phone Unavailable Primary Care Provider Unavailabl e Encounter Details Date Type Department Care Team (Late st Contact Info) Description 01/01/2025 Telephone [facility] OB [address] [place] [address] Martha Heath MA Social History Tobacco Use Types Packs/Day Years [...] encounter Miscellaneous Notes * Telephone Encounter - Martha Heath MA - 01/02/2025 1:18 PM EDT Pt called and she stated she was scheduled for tomorrow * Telephone Encounter - Martha Heath MA - 01/02/2025 8:43 AM EDT LM for pt regarding below * Telephone Encounter - Martha Heath MA - 01/01/2025 3:17 PM EDT Spoke with dionne at [facility] Induction for 01/03/2025 canceled and rescheduled for 01/08/2025 at 5am Pt must come in for appt this week. * Telephone Encounter - Martha Heath MA - 01/01/2025 2:27 PM EDT Pt called wanting to cancel induction on 01/03/2025. Pt states she would like to wait until after 40wks. Pt states somewhere between the 15th-18th of this month. Please reschedule induction documented in this encounter Plan of Treatment Not on file documented as of this encounter Visit Diagnoses Not on filedocumented in this encounter
--- OUTSIDE RECORDS SUMMARY | 2025-01-08 05:10 | XMS_ITS | Encounter Summary ---
Author Organization [facility] Address [address] [place] [address] Care Team Providers Care Sales Enablement Specialist Name Role Phone Unavailable Primary Care Provider Unavailabl e Encounter Details Date Type Department Care Team (Late st Contact Info) Description 01/03/2025 Bamboo flowsheet [facility] OB [address] [place] [address] Emily Carrera PA [address] [place], [facility] Social History Tobacco Use Types Packs/Day [...]
--- OUTSIDE RECORDS SUMMARY | 2025-01-08 05:10 | XMS_ITS | Encounter Summary ---
Author Organization [facility] Address [address] [place] [address] Care Team Providers Care Cat Breeder Name Role Phone Unavailable Primary Care Provider Unavailabl e Encounter Details Date Type Department Care Team (Late st Contact Info) Description 06/13/2024 Abstract [facility] OB [address] [facility] [place] [address] Davis Parks, DO [address] [facility] [place] [address] Social History Tobacco Use Types Packs/Day Years [...]
--- OUTSIDE RECORDS SUMMARY | 2025-01-08 05:10 | XMS_ITS | Encounter Summary ---
Author Organization [facility] Address [address] [place] [address] Care Team Providers Care Wool Classer Name Role Phone Unavailable Primary Care Provider Unavailabl e Encounter Details Date Type Department Care Team (Late st Contact Info) Description 06/25/2024 Abstract [facility] OB [address] [facility] [address] Davis Parks, DO [address] [facility] [place] [address] Social History Tobacco Use Types Packs/Day Years [...]
--- OUTSIDE RECORDS SUMMARY | 2025-01-08 05:10 | XMS_ITS | Encounter Summary ---
Author Organization [facility] Address [address] [place] [address] Care Team Providers Care Stone And Concrete Washer Name Role Phone Unavailable Primary Care Provider Unavailabl e Encounter Details Date Type Department Care Team (Late st Contact Info) Description 06/08/2024 Abstract [facility] OB [address] [facility] [place] [address] Davis Parks, DO [address] [facility] [place] [address] Social History Tobacco Use Types Packs/Day Years [...]
--- OUTSIDE RECORDS SUMMARY | 2025-01-08 05:10 | XMS_ITS | Encounter Summary ---
Author Organization [facility] Address [address] [place] [address] Care Team Providers Care News Producer Name Role Phone Unavailable Primary Care Provider Unavailabl e Encounter Details Date Type Department Care Team (Late st Contact Info) Description 06/28/2024 Abstract [facility] OB [address] [facility] [place] [address] Davis Parks, DO [address] [facility] [place] [address] Social History Tobacco Use Types Packs/Day Years [...]
--- OUTSIDE RECORDS SUMMARY | 2025-01-08 05:10 | XMS_ITS | Encounter Summary ---
Author Organization [facility] Address [address] [place] [address] Care Team Providers Care Aix Administrator Name Role Phone Unavailable Primary Care Provider Unavailabl e Encounter Details Date Type Department Care Team (Late st Contact Info) Description 12/26/2024 Abstract [facility] OB [address] [facility] [place] [address] Davis Parks, DO [address] [facility] [place] [address] Social History Tobacco Use Types Packs/Day Years [...]
--- OUTSIDE RECORDS SUMMARY | 2025-01-08 05:10 | XMS_ITS | Encounter Summary ---
Author Organization [facility] Address [address] [place] [address] Care Team Providers Care Automobile Club Membership Sales Agent Name Role Phone Unavailable Primary Care Provider Unavailabl e Encounter Details Date Type Department Care Team (Late st Contact Info) Description 07/19/2024 Abstract [facility] OB [address] [facility] [place] [address] Davis Parks, DO [address] [facility] [place] [address] Social History Tobacco Use Types Packs/Day Years [...]
--- OUTSIDE RECORDS SUMMARY | 2025-01-08 05:10 | XMS_ITS | Encounter Summary ---
Author Organization [facility] Address [address] [place] [address] Care Team Providers Care Clinical Resource Nurse Name Role Phone Unavailable Primary Care Provider Unavailabl e Encounter Details Date Type Department Care Team (Late st Contact Info) Description 07/19/2024 Abstract [facility] OB [address] [facility] [place] [address] Davis Parks, DO [address] [facility] [place] [address] Social History Tobacco Use Types Packs/Day Years [...]
--- OUTSIDE RECORDS SUMMARY | 2025-01-08 05:10 | XMS_ITS | Encounter Summary ---
Author Organization [facility] Address [address] [place] [address] Care Team Providers Care Yard Loader Operator Name Role Phone Unavailable Primary Care Provider Unavailabl e Encounter Details Date Type Department Care Team (Late st Contact Info) Description 12/26/2024 Bamboo flowsheet [facility] OB [address] [place] [address] Davis Parks, DO [address] [place], [facility] Social History Tobacco Use Types Packs/Day [...]
--- OUTSIDE RECORDS SUMMARY | 2025-01-08 05:10 | XMS_ITS | Encounter Summary ---
Author Organization [facility] Address [address] [place] [address] Care Team Providers Care Abatement Worker Name Role Phone Unavailable Primary Care Provider Unavailabl e Encounter Details Date Type Department Care Team (Late st Contact Info) Description 07/18/2024 Abstract [facility] OB [address] [place] [address] Davis Parks, DO [address] [facility] [place] [address] Social History Tobacco Use Types Packs/Day Years [...]
[2025-01-08 05:34] LABS: Hematocrit 31.9 % (36.0-48.0); Hemoglobin 10.0 g/dL (12.0-16.0); Mean Corpuscular HGB Conc 31.3 g/dL (29.9-35.2); Mean Corpuscular Hemoglobin 25.5 pg (26.7-34.0); Mean Corpuscular Volume 81.4 fL (81.0-99.0); Platelet Count 265 10^3/uL (150-450); Red Blood Count 3.92 10^6/uL (4.20-5.40); White Blood Count 9.0 10^3/uL (4.0-11.0)
[2025-01-08 05:46] LABS: Cannabinoid Screen Urine NEGATIVE (NEGATIVE); Methamphetamines Screen Urine NEGATIVE (NEGATIVE); Tricyclic Antidepressant Urine NEGATIVE (NEGATIVE)
[2025-01-08] MEDS: OXYTOCIN/0.9 % SODIUM CHLORIDE 10 UNITS/500 ML PLAST..BAG 6 UNIT IV (06:00)
[2025-01-08] MEDS: 0.9 % SODIUM CHLORIDE 1,000 ML 125 ML IV (06:03)
[2025-01-08] MEDS: CEFAZOLIN SODIUM/DEXTROSE,ISO 2 GM/50 ML PIGGYBACK IV ×2 (06:09→13:12)
[2025-01-08] MEDS: ROPIVACAINE HCL/PF 400 MG/200 ML PREMIX 8 MG EPIDURAL (10:44)
[2025-01-08] MEDS: 0.9 % SODIUM CHLORIDE 1,000 ML 1000 ML IV (10:45)
[2025-01-08] MEDS: OXYTOCIN/0.9 % SODIUM CHLORIDE 20 UNITS/1,000 ML PLAST..BAG 125 UNIT IV (14:27)
--- NOTE | 2025-01-08 14:53 | PM.OBPRCVD ---
Procedure Intrapartal events: None Induction method: per pitocin protocol Delivery augmentation: rupture of membranes and pitocin Delivery monitor: external FHT and external uterine Route of delivery: Episiotomy Description: midline L&D Laceration Description: periurethral - 1st degree and perineal - 2nd degree Delivery repair: Vicryl Estimated blood loss (mL): 400 Anesthesia type: Epidural Disposition: floor Infant Delivery date: 01/08/25 Gender: female presentation: vertex Placental delivery description: Spontaneous cord description: 3 Vessels and Nuchal Cord
[2025-01-08] MEDS: ACETAMINOPHEN 325 MG TABLET 650 MG PO (20:20)
[2025-01-08] MEDS: GLYCERIN/WITCH HAZEL PADS 1 PAD TOPICAL (21:24)
[2025-01-08] MEDS: BENZOCAINE/MENTHOL 85 GRAM SPRAY BOTTLE 1 APPLIC TOPICAL (21:24)
[2025-01-08] MEDS: IBUPROFEN 600 MG TABLET PO (21:44)
[2025-01-08 22:07] LABS: Hemoglobin 7.4 g/dL (12.0-16.0); Immature Granulocytes Abs Auto 0.12 10^3/uL (0.00-0.03); Immature Granulocytes Pct Auto 0.7 % (0.0-0.5); Lymphocytes Absolute Auto 1.6 10^3/uL (1.2-3.8); Mean Corpuscular HGB Conc 31.6 g/dL (29.9-35.2); Mean Corpuscular Hemoglobin 25.6 pg (26.7-34.0); Mean Corpuscular Volume 81.0 fL (81.0-99.0); Platelet Count 244 10^3/uL (150-450); Red Blood Count 2.89 10^6/uL (4.20-5.40); White Blood Count 16.9 10^3/uL (4.0-11.0)
[2025-01-08 22:13] LABS: Hematocrit 23.4 % (36.0-48.0)
[2025-01-09] VITALS (12 sets, daily range): BP systolic 109–139; BP diastolic 63–78; PULSE 65–85; TEMP 36.7–37.1
[2025-01-09] MEDS: ACETAMINOPHEN 325 MG TABLET 650 MG PO ×3 (03:46→21:53)
[2025-01-09] MEDS: IBUPROFEN 600 MG TABLET PO ×2 (03:46→16:06)
[2025-01-09 06:39] LABS: Immature Granulocytes Abs Auto 0.10 10^3/uL (0.00-0.03); Immature Granulocytes Pct Auto 0.7 % (0.0-0.5); Lymphocytes Absolute Auto 2.3 10^3/uL (1.2-3.8); Mean Corpuscular HGB Conc 31.4 g/dL (29.9-35.2); Mean Corpuscular Hemoglobin 25.7 pg (26.7-34.0); Mean Corpuscular Volume 81.8 fL (81.0-99.0); Platelet Count 224 10^3/uL (150-450); Red Blood Count 2.69 10^6/uL (4.20-5.40); White Blood Count 14.7 10^3/uL (4.0-11.0)
[2025-01-09 06:48] LABS: Hematocrit 22.0 % (36.0-48.0); Hemoglobin 6.9 g/dL (12.0-16.0)
--- NOTE | 2025-01-09 08:20 | SWNOTE1 ---
SW consulted for teen , pt is 19 years old. SW to check with nursing to see if there are any concerns.
[2025-01-09] MEDS: 0.9 % SODIUM CHLORIDE 250 ML 10 ML IV (08:24)
--- NOTE | 2025-01-09 08:36 | PM.OBPN ---
OB - PN: Subj Subjective Patient comments: no complaints [place] status: doing well [place] feeding status: exclusively Exam Constitutional Vital Signs, click to edit/add: Last Vital Signs Temp 98.1 F 01/09/25 00:32 Pulse 77 01/09/25 08:22 Resp 16 01/08/25 16:37 BP 113/65 01/09/25 08:22 O2 Del Method Room Air 01/09/25 00:35 Documenting provider has reviewed patient's vital signs: yes Common normals: no apparent distress General appearance: cooperative, comfortable and well kempt Orientation/consciousness: Yes awake, Yes oriented to person, Yes oriented to place and Yes oriented to time HENMT Common normals: normocephalic Eye Common normals: EOMs intact bilaterally General eye: normal appearance of both eyes Neck & C-Spine Common normals: full ROM and no lymphadenopathy General: normal visual inspection Lymph Lymphatic: no lymphadenopathy noted Chest Common normals: inspection of chest normal Respiratory Common normals: normal respiratory effort, no retractions, no use of accessory muscles, clear to auscultation bilaterally and percussion normal Effort & inspection: able to speak in complete sentences Auscultation: clear to auscultation bilaterally Cardio Common normals: regular rate and regular rhythm Rate: regular rate Rhythm: regular rhythm GI Common normals: Normal to inspection, nondistended, normoactive bowel sounds present Inspection: normal to inspection Palpation: soft Common normals: no CVA tenderness Back & Pelvis Common normals: no CVA tenderness Extremity Common normals: normal to inspection Neuro Common normals: oriented x3 Sensorium/orientation: awake, alert, oriented to person, oriented to place and oriented to time Psych Common normals: mental status grossly normal, thought process normal, cooperative, affect normal, speech normal, activity/motor behavior normal, denies hallucinations, denies homicidal ideation and denies suicidal ideation Attitude: calm Activity/motor behavior: appropriate eye contact Thought process: normal thought process Results Labs Labs: Short CBC 01/08/25 01/09/25 Range/Units 22:00 06:27 WBC 16.9 H 14.7 H (4.0-11.0) 10^3/uL Hgb 7.4 L 6.9 L* (12.0-16.0) g/dL Hct 23.4 L* 22.0 L* (36.0-48.0) % Plt Count 244 224 (150-450) 10^3/uL OB - PN: A/P Assessment and Plan (1) Term delivered: (2) Blood loss anemia: Plan - Vaginal Delivery day: 1 Plan: routine care Time Spent with Patient Time: Total time spent is greater than 50% in coordination of care (as documented) at patient's floor/unit and/or counseling patient: Total time spent with greater than 50% in coordination of care (as documented) at patient's floor/unit and/or counseling patient: less than 15 minutes
[2025-01-09] MEDS: DOCUSATE SODIUM 100 MG CAPSULE PO ×2 (12:26→21:53)
--- NOTE | 2025-01-09 13:46 | SWNOTE1 ---
SW consulted for teen . SW spoke to nurse prior to coming in. Would like SW to see to make sure they have all the resources they need. SW met with pt and father of baby. Father of baby's mother was in room as well (Grandmother). Pt and father of baby are and do live together. They voiced they have everything they need at home. She is breast feeding and voiced it is going well. She has contacted WIC and plans on using them for assistance. Pt and father of baby voiced they have good support. SW asked if they had any questions/concerns about returning home with baby. They both voiced they do not and she stated she is excited to get home. Grandmother holding baby while in room.
[2025-01-10] MEDS: IBUPROFEN 600 MG TABLET PO ×2 (01:32→10:21)
--- NOTE | 2025-01-10 07:41 | P.OBPN_ITS ---
OB - PN: Subj Subjective Patient comments: no complaints and pain well controlled [place] status: doing well Exam Constitutional Vital Signs, click to edit/add: Last Vital Signs Temp 98.3 F 01/09/25 21:58 Pulse 83 01/09/25 21:58 Resp 16 01/09/25 21:58 BP 120/65 01/09/25 21:55 O2 Del Method Room Air 01/09/25 21:58 Documenting provider has reviewed patient's vital signs: yes Common normals: no apparent distress Respiratory Common normals: normal respiratory effort and clear to auscultation bilaterally Cardio Common normals: regular rate and regular rhythm GI Common normals: Normal to inspection, nondistended, normoactive bowel sounds present Extremity Common normals: no clubbing, cyanosis or edema and no calf tenderness OB - PN: A/P Assessment and Plan (1) Term delivered: (2) Blood loss anemia: Plan - Vaginal Delivery day: 2 Plan: routine care, discharge home and follow up 6 weeks Time Spent with Patient Time: Total time spent is greater than 50% in coordination of care (as documented) at patient's floor/unit and/or counseling patient: Total time spent with greater than 50% in coordination of care (as documented) at patient's floor/unit and/or counseling patient: less than 15 minutes
[2025-01-10 07:56] VITALS: BP 121/67; PULSE 72; TEMP 36.9
[2025-01-10] MEDS: DOCUSATE SODIUM 100 MG CAPSULE PO (10:21)
[2025-01-10] MEDS: ACETAMINOPHEN 325 MG TABLET 650 MG PO (10:21)
[2025-01-10] MEDS: GLYCERIN/WITCH HAZEL PADS 1 PAD TOPICAL (10:22)
== END 2025-01-10 15:20 | disposition home or self-care (01) | DRG 806 ==
PROVIDERS: Admitting Provider Obstetrics & Gynecology; Visit Provider Obstetrics & Gynecology
DX: O69.81X0 Labor and delivery complicated by cord around neck, without compression, not applicable or unspecified (principal); D62 Acute posthemorrhagic anemia; Z37.0 Single live birth; O70.1 Second degree perineal laceration during delivery; Z3A.39 39 weeks gestation of pregnancy; O90.81 Anemia of the puerperium; O99.824 Streptococcus B carrier state complicating childbirth; Z86.16 Personal history of COVID-19
CPT/HCPCS: 36415; 36430; 59050; 59410; 80307; 85025; 85027; 86850; 86900; 86901; J0665; J0690; J2795; P9016

== ENCOUNTER 2025-01-11 10:24 | Emergency (ER) | payer OTHER, MEDICAID, SELFPAY ==
[2025-01-11] VITALS (10 sets, daily range): BP systolic 127–148; BP diastolic 79–90; PULSE 87; TEMP 36.8; O2SAT 97–100; BMI 26.6
--- NOTE | 2025-01-11 10:50 | PC.NURSE ---
soaked gauze placed on vagina - 1 gauze visualized hanging out vagina, somewhat bloody pt does look pale - hgb yesterday upon d/c was 6.9 states she's not had any extensive bleeding
[2025-01-11] MEDS: ACETAMINOPHEN 325 MG TABLET 650 MG PO (11:07)
[2025-01-11 11:11] LABS: Hematocrit 26.2 % (36.0-48.0); Hemoglobin 8.2 g/dL (12.0-16.0); Immature Granulocytes Abs Auto 0.08 10^3/uL (0.00-0.03); Immature Granulocytes Pct Auto 0.8 % (0.0-0.5); Lymphocytes Absolute Auto 1.9 10^3/uL (1.2-3.8); Mean Corpuscular HGB Conc 31.3 g/dL (29.9-35.2); Mean Corpuscular Hemoglobin 25.9 pg (26.7-34.0); Mean Corpuscular Volume 82.9 fL (81.0-99.0); Platelet Count 277 10^3/uL (150-450); Red Blood Count 3.16 10^6/uL (4.20-5.40); White Blood Count 10.1 10^3/uL (4.0-11.0)
[2025-01-11 11:18] LABS: Anion Gap 15.3; Blood Urea Nitrogen 10.0 mg/dL (6.4-19.3); Calcium 8.7 mg/dL (8.5-10.1); Carbon Dioxide 23.4 mmol/L (21.0-32.0); Chloride 109 mmol/L (98-107); Estimated GFR (African America >60 (>=60 mL/min/1.73m^2); Estimated GFR (Non-African Ame >60 (>=60 mL/min/1.73m^2); Glucose 83 mg/dL (74-106); Potassium 3.7 mmol/L (3.5-5.1); Sodium 144 mmol/L (136-145)
--- NOTE | 2025-01-11 11:19 | PC.NURSE ---
called L&D RN who took care of pt and is coming down to see patient
--- NOTE | 2025-01-11 11:46 | PC.NURSE ---
new gauze applied - warm water used instead of cold this time
--- NOTE | 2025-01-11 11:58 | ED.GENADUL1 ---
HPI HPI - General Adult General Chief complaint: Skin/Abscess/Foreign Body Stated complaint: POSSIBLE FB IN STITCHES VAGINAL DELIVERY 01/08/25 Time Seen by Provider: 01/11/25 10:26 Source: patient Mode of arrival: walk-in Limitations: no limitations History of Present Illness HPI narrative: 19-year-old female presents to the emergency department for gauze at her vagina. 3 days ago she had vaginal delivery and had episiotomy and sutures. She states after she got home she saw a piece of gauze coming out of her and it seemed to be stuck. She has not had heavy bleeding. No abdominal pain or fever. Related Data Previous Rx's ?Medication ?Instructions ?Recorded cephalexin 500 mg capsule 500 mg PO TID 7 days #21 caps 01/11/25 Allergies Allergy/AdvReac Type Severity Reaction Status Date / Time amoxicillin AdvReac Severe Vomiting Verified 07/18/24 17:54 Penicillins AdvReac Severe Vomiting Verified 07/18/24 17:54 Opioid HPI Opioid Management Most Recent Opioid Data: Last Pain Scale 7 Today, 10:30 Last MAR Pain Assessment 01/08/25, 20:20 Ur Phencyclidine Scrn, (NEGATIVE) Negative 01/08/25, 05:22 Review of Systems ROS Narrative A ten point review of systems is negative except as noted above. PFSH PFSH Social History Little interest or pleasure in doing things: not at all Feeling down, depressed, or hopeless: not at all Exam Narrative Exam Narrative: Nurses note and vital signs reviewed and patient is not hypoxic. General: The patient appears well and in no apparent distress. Patient is resting comfortably on cart. Skin: Warm, dry, pallor noted. There is no rash noted. Head: Normocephalic, atraumatic Eye: Normal conjunctiva, no drainage Ears, Nose, Mouth, and Throat: oral mucosa is moist. Nares patent. Cardiovascular: Regular Rate and Rhythm Respiratory: Patient is in no distress, no accessory muscle use, lungs are clear to auscultation, no wheezing, rales or rhonchi Back: non-tender GI: Soft and nontender : There is a white piece of clots coming out from her vagina. It seems to be not able to be easily removed even after soaking it with saline for an extended period of time. Musculoskeletal: The patient has no evidence of calf tenderness, no pitting edema, symmetrical pulses noted bilaterally Neurological: A&O, normal speech Psychiatric: Cooperative Constitutional Vital Signs, click to edit/add: Last Vital Signs Temp 98.2 F 01/11/25 10:30 Pulse 87 01/11/25 10:30 Resp 16 01/11/25 10:30 BP 148/79 H 01/11/25 10:30 Pulse Ox 98 01/11/25 10:30 O2 Del Method Room Air 01/11/25 10:30 Course Vital Signs Vital signs: Vital Signs Temperature 98.2 F 01/11/25 10:30 Pulse Rate 87 01/11/25 10:30 Respiratory Rate 16 01/11/25 10:30 Blood Pressure 148/79 H 01/11/25 10:30 Pulse Oximetry 98 01/11/25 10:30 Oxygen Delivery Method Room Air 01/11/25 10:30 Temperature 98.2 F 01/11/25 10:30 Pulse Rate 87 01/11/25 10:30 Respiratory Rate 16 01/11/25 10:30 Blood Pressure 148/79 H 01/11/25 10:30 Pulse Oximetry 98 01/11/25 10:30 Oxygen Delivery Method Room Air 01/11/25 10:30 Medical Decision Making MDM Narrative Medical decision making narrative: I made attempts to remove the gauze but was unsuccessful despite soaking it in saline for an extended period of time. Because of the concern for damage to the recent suture line Dr. Parks was consulted and he saw the patient here and remove the gauze. He is requesting the patient be placed on a course of Keflex and I have sent a prescription in for her. Treatment diagnosis and follow-up were discussed with the patient. Differential Diagnosis Differential Diagnosis: Foreign body Lab Data Lab results reviewed: Yes I reviewed the patient's lab results Labs: Lab Results 01/11/25 Range/Units 11:00 WBC 10.1 (4.0-11.0) 10^3/uL RBC 3.16 L (4.20-5.40) 10^6/uL Hgb 8.2 L (12.0-16.0) g/dL Hct 26.2 L (36.0-48.0) % MCV 82.9 (81.0-99.0) fL MCH 25.9 L (26.7-34.0) pg MCHC 31.3 (29.9-35.2) g/dL RDW 18.6 H (11.0-15.0) % Plt Count 277 (150-450) 10^3/uL MPV 9.1 L (9.5-13.5) fL Neut % (Auto) 70.6 (43.0-75.0) % Lymph % (Auto) 18.3 L (20.5-60.0) % [place] % (Auto) 7.0 (1.7-12.0) % Eos % (Auto) 2.7 (0.9-7.0) % Baso % (Auto) 0.6 (0.2-2.0) % Neut # (Auto) 7.2 H (1.4-6.5) 10^3/uL Lymph # (Auto) 1.9 (1.2-3.8) 10^3/uL [place] # (Auto) 0.7 (0.3-0.8) 10^3/uL Eos # (Auto) 0.3 (0.0-0.7) 10^3/uL Baso # (Auto) 0.1 (0.0-0.1) 10^3/uL Abs Immat Gran (auto) 0.08 H (0.00-0.03) 10^3/uL Imm/Tot Granulo (auto) 0.8 H (0.0-0.5) % Sodium 144 (136-145) mmol/L Potassium 3.7 (3.5-5.1) mmol/L Chloride 109 H (98-107) mmol/L Carbon Dioxide 23.4 (21.0-32.0) mmol/L Anion Gap 15.3 BUN 10.0 (6.4-19.3) mg/dL Creatinine 0.48 L (0.55-1.02) mg/dL Est GFR ( Amer) >60 (>=60 mL/min/1.73m^2) Est GFR (Non-Af Amer) >60 (>=60 mL/min/1.73m^2) BUN/Creatinine Ratio 20.8 Glucose 83 (74-106) mg/dL Calcium 8.7 (8.5-10.1) mg/dL Discharge Plan Discharge Chief Complaint: Skin/Abscess/Foreign Body Clinical Impression: Foreign body in vagina Patient Disposition: Home, Self-Care Time of Disposition Decision: 12:27 Condition: Good Mode of Transportation: Private Vehicle Prescriptions / Home Meds: New cephalexin 500 mg capsule 500 mg PO TID 7 Days Qty: 21 0RF Print Language: Urdu Instructions: Vaginal Foreign Body (ED) Referrals: Physician,Non-Staff, MD [Primary Care Provider] - 1 week
== END 2025-01-11 13:06 | disposition home or self-care (01) ==
PROVIDERS: Emergency Provider Emergency Medicine
DX: O90.89 Other complications of the puerperium, not elsewhere classified (principal); T19.2XXA Foreign body in vulva and vagina, initial encounter; T81.508A Unspecified complication of foreign body accidentally left in body following other procedure, initial encounter
CPT/HCPCS: 36415; 80048; 85025; 99284

== ENCOUNTER 2025-01-14 09:01 | Outpatient (OUT) | payer OTHER, MEDICAID, SELFPAY ==
--- OUTSIDE RECORDS SUMMARY | 2025-01-14 09:06 | XMS_ITS | Encounter Summary ---
Author Organization [facility] tem Address [id number] [address] [place] [address] Care Team Providers Care Bar Roller Name Role Phone Rudolph Ortiz MD Primary Care Provider [phone] Encounter Details Date Type Department Care Team (Late st Contact Info) Description 08/21/2024 Orders Only Maternal- Medicine at [facility] [address] [place] [id number] Ref Prov, [place] [address] Social History Tobacco Use Types Packs/Day Years [...] ORDERABLES Almaz l Result Performing Organization Address City/[facility]/ZIP Co de Phone Number MANUALLY TRANSCRIBED RESULTS * Unlisted Genetic Test (06/17/2024 4:12 PM EST) us Not In System Ref Prov LAB BLOOD ORDERABLES Almaz l Result Performing Organization Address City/[facility] Co de Phone Number MANUALLY TRANSCRIBED RESULTS documented in this encounter Visit Diagnoses Not on filedocumented in this encounter Care Teams Bar Roller Relationship Specialty Start Date End Date Rudolph Ortiz MD [address] [place], [place] [id number] PCP - General 12/06/12 documented as of this encounter
--- OUTSIDE RECORDS SUMMARY | 2025-01-14 09:06 | XMS_ITS | Clinical Summary ---
Author Organization [facility] tem Address [id number] [address] [place] [address] Care Team Providers Care Bioinformatics Computer Scientist Name Role Phone Rudolph Ortiz MD Primary Care Provider [phone] Allergies Active Allergy Reactions Criticality Noted Date [...] - 10/16/2024 11:59 PM EDT Hospital Encounter [facility] - Ultrasound [address] [place] [address] Family history of complex congenital [...] 8:50 AM EDT) Anatomical Region Laterality Modality OB-DINING SERVICE INSPECTOR Ultrasound 10/16/2024 8:12 AM EDT Narrative 10/16/2024 2:59 PM EDT NAME: ETELVINA BETHEA : 2005 SEX: F Accession Number: [id number] ORDERING PHYSICIAN: HARMAN LINN REFERRING PHYSICIAN: MARK FLOOD Coding ----- --------- Procedures [id number]: Follow-up Ultrasound, per fetus [id number]: Echocardiography, , cardiovascular system, real time with [...] EFW (oz) 8 oz EFW by: Hadlock ([id number]) Extended Tibia 46.0 mm 28w 0d 36% [place] Special Distribution Clerk 4.6 mm CM 5.0 mm 8% Nicolaides [...] Heart / Thorax 4-chamber view. 3-vessel view. 0-rpkdjl-bosvzoj view. Great vessels. Diaphragm. The following structures [...] normal RVOT view normal 3-vessel view suboptimal 1-mgigxa-ywqvebu view suboptimal Aortic arch view normal Ductal [...] BETHEA : 2005 SEX: F Accession Number: [id number] ORDERING PHYSICIAN: HARMAN LINN REFERRING PHYSICIAN: MARK FLOOD Coding ----- --------- Procedures [id number]: Follow-up Ultrasound, per fetus [id number]: Echocardiography, , cardiovascular system, real timewith image [...] EFW (oz) 8 oz EFW by: Hadlock (VOD-[id number]-FL) Extended Tibia 46.0 mm 28w 0d 36% [place] Special Distribution Clerk 4.6 mm CM 5.0 mm 8% Nicolaides [...] Heart / Thorax 4-chamber view. 3-vessel view. 6-tkqkeq-aqordsl view. Greatvessels. Diaphragm. The following structures were [...] normal RVOT view normal 3-vessel view suboptimal 9-euvrod-tymbktf view suboptimal Aortic arch view normal Ductal [...] OB provider unless otherwise specified by [facility]. Results forwarded to ordering provider so they can follow up with thepatient as necessary. Harman Linn MD [facility] ORDERABLES Final Resul t from Last 3 Months Insurance [employer] [address] MEDICAID [employer] [address] MEDICAID Care Teams Bioinformatics Computer Scientist Relationship Specialty Start Date End Date Rudolph Ortiz MD [address] [place] [id number] PCP - General 12/06/12
--- OUTSIDE RECORDS SUMMARY | 2025-01-14 09:06 | XMS_ITS | Encounter Summary ---
Author Organization [facility] tem Address [id number] [address] [place] [address] Care Team Providers Care Software Asset Manager Name Role Phone Rudolph Ortiz MD Primary Care Provider [phone] Encounter Details Date Type Department Care Team (Late st Contact Info) Description 08/21/2024 Abstract Maternal- Medicine at [facility] [address] [place] [phone] Seth Horton MD [address] [facility] [address] [place] [address] Social History Tobacco Use Types Packs/Day Years [...] on filedocumented in this encounter Care Teams Software Asset Manager Relationship Specialty Start Date End Date Rudolph Ortiz MD [address] [place] [id number] PCP - General 12/06/12 documented as of this encounter
[2025-01-14 15:58] VITALS: BP 119/79; PULSE 70; TEMP 36.7; O2SAT 97
--- NOTE | 2025-01-14 15:58 | PC.NURSE ---
Holly, Sohail and 6 day old Arcadio arrive for follow up. Parents states are doing well. Ny states I didn't realize how much newborns were awake during the night, it's hard LC validates parents that stages can be difficult. Both offer support to each other and explain how dad allows mom to catch extra sleep the first part of the night. Holly without concerns or complaints for self. VSS and assessment WNL. Minimal bleeding, stitches are less bothersome today than last 2 days and milk came in 2 days ago. Breasts tender and full, nipples intact. Baby Arcadio has 7-8 wet diapers, and 4 yellow stool diapers. Feeds occur every 2-2.5 hours, infant waking welf for feeds. Holly reports sometimes it will only be 1 hour so I put her back on the breast Reassurance and support offered to mom for responding to baby led feeding and encouraged continuation. Baby with VSS and assessment WNL, no concerns noted Parents doing well with baby, asks good questions. Mom states I always wanted babies, and she is perfect Strong family bonding noted. No concerns voiced. Family home together, aware to call for questions, aware of MOMS group.
== END 2025-01-14 16:02 | disposition home or self-care (01) ==
LOC: FBCO 09:04
PROVIDERS: Visit Provider Obstetrics & Gynecology
DX: Z39.1 Encounter for care and examination of lactating mother (principal)